=== PATIENT | male | born 1965 | race Caucasian/White ===

== ENCOUNTER → 2016-09-30 | Outpatient (CLI) | payer OTHER ==
[~2016-09-30] MED LIST: ATOR-22 PO; MULT-506 PO
--- NOTE | 2016-09-30 13:23 | DIAGNOSTIC IMAGING REPORT ---
RIGHT UPPER EXTREMITY ULTRASOUND CLINICAL HISTORY: Mass of right upper extremity. COMPARISON STUDY: No previous studies for comparison. FINDINGS: Sonography of the right upper extremity at site of palpable mass revealed a subtle 3.7 x 1.1 x 2.6 cm lobulated echogenic lesion within the subcutaneous tissues overlying the right deltoid muscle. This likely reflects the palpable abnormality. IMPRESSION: Suspected 3.7 x 1.1 x 2.6 cm echogenic subcutaneous mass overlying the right deltoid muscle. This likely reflects the palpable abnormality. The sonographic appearance is nonspecific although this could reflect a lipoma. Follow-up to ensure stability is recommended. If this should enlarge, repeat ultrasound is recommended. Electronically signed by: Rajendra Bangura M.D. 09/30/2016 1:21 PM
== END | disposition home or self-care (01) ==
LOC: C.ULTRBC 12:35
PROVIDERS: ATTEND Internal Medicine
DX: R22.31 Localized swelling, mass and lump, right upper limb (principal)

== ENCOUNTER → 2016-10-06 | Outpatient (CLI) | payer OTHER | END | disposition home or self-care (01) | LOC: C.PATH 08:11 | PROVIDERS: ATTEND Internal Medicine | DX: R22.9 Localized swelling, mass and lump, unspecified (principal); D17.21 Benign lipomatous neoplasm of skin and subcutaneous tissue of right arm ==

== ENCOUNTER → 2016-12-07 | Outpatient (CLI) | payer OTHER ==
[2016-12-07 13:02] LABS: ALT/SGPT 31 U/L (12-78); BLOOD UREA NITROGEN 17 mg/dl (7-18); BUN/CREATININE RATIO 14.3 (10-20); CALCIUM 8.9 mg/dl (8.5-10.1); CARBON DIOXIDE 27 mmol/L (21-32); CHLORIDE 105 mmol/L (98-107); CHOLESTEROL 204 mg/dl (0-200); GLUCOSE 82 mg/dl (70-99); POTASSIUM 3.9 mmol/L (3.5-5.1); SODIUM 141 mmol/L (136-145)
[2016-12-07 13:05] LABS: ALB/GLOB RATIO 1.2 (0.9-2); ALKALINE PHOSPHATASE 109 U/L (45-117); AST/SGOT 19 U/L (15-37); CHOLESTEROL/HDL RATIO 3.5; HDL CHOLESTEROL 58 mg/dl; LDL CHOLESTEROL CALCULATED 102 mg/dl; TRIGLYCERIDES 222 mg/dl (0-150); VERY LOW DENSITY LIPOPROT CALC 44 mg/dl
== END | disposition home or self-care (01) ==
LOC: C.LABBFT 09:49
PROVIDERS: ATTEND Internal Medicine
DX: Z00.00 Encounter for general adult medical examination without abnormal findings (principal)

== ENCOUNTER → 2017-04-02 | Outpatient (CLI) | payer OTHER ==
[2017-04-02 13:06] LABS: ALT/SGPT 37 U/L (12-78); AST/SGOT 19 U/L (15-37); BLOOD UREA NITROGEN 19 mg/dl (7-18); BUN/CREATININE RATIO 15.9 (10-20); CALCIUM 9.2 mg/dl (8.5-10.1); CARBON DIOXIDE 27 mmol/L (21-32); CHLORIDE 107 mmol/L (98-107); GLUCOSE 88 mg/dl (70-99); SODIUM 141 mmol/L (136-145)
[2017-04-02 13:08] LABS: ALB/GLOB RATIO 1.2 (0.9-2); ALKALINE PHOSPHATASE 122 U/L (45-117); AMYLASE 58 U/L (25-115)
== END | disposition home or self-care (01) ==
LOC: C.LABBFT 08:55
PROVIDERS: ATTEND Internal Medicine
DX: R10.9 Unspecified abdominal pain (principal)

== ENCOUNTER → 2017-04-05 | Outpatient (CLI) | payer OTHER ==
--- NOTE | 2017-04-05 08:37 | DIAGNOSTIC IMAGING REPORT ---
ABDOMINAL ULTRASOUND, RIGHT UPPER QUADRANT HISTORY: Abdominal pain. COMPARISON: CT of the abdomen and pelvis April 04, 2012 and abdominal ultrasound April 30, 2014. FINDINGS: Hepatic echogenicity is increased. No hepatic lesions are identified. The gallbladder is normal. There are no gallstones. There is no biliary ductal dilatation. The common bile duct measures 4 mm in caliber. The pancreatic body is normal. The head and tail are obscured. There is no right hydronephrosis. There is a 9 mm right renal cyst. There is mild right renal atrophy. IMPRESSION: 1. Fatty liver. 2. No gallstones or biliary ductal dilatation. Electronically signed by: Rajendra Bangura M.D. 04/05/2017 8:36 AM Dictated Date/Time: 04/05/2017 8:35 AM
== END | disposition home or self-care (01) ==
LOC: C.ULTR 07:31
PROVIDERS: ATTEND Internal Medicine
DX: R10.9 Unspecified abdominal pain (principal); K76.0 Fatty (change of) liver, not elsewhere classified

== ENCOUNTER → 2017-04-16 | Outpatient (CLI) | payer OTHER ==
[~2017-04-16] MED LIST changes: -ATOR-22 PO; -MULT-506 PO; +SINCALIDE INJ 1.8 MCG in SODIUM CHLORIDE 0.9% 100ML 100 ML IV SCH
--- NOTE | 2017-04-16 10:21 | DIAGNOSTIC IMAGING REPORT ---
HEPATOBILIARY EF IMAGING CLINICAL HISTORY: 51 years-old Male presenting with R10.9 Abdominal pain. TECHNIQUE: Dynamic imaging of the gallbladder was initiated 65 minutes after administration of 5.101 mCi of technetium 99m Choletec. Imaging was obtained every 5 minutes over a span of 40 minutes. 1.8 mcg of sincalide was injected 5 minutes prior to the start of imaging. The gallbladder ejection fraction was calculated. COMPARISON: Correlation made to ultrasound from 04/05/2017.. FINDINGS: The hepatobiliary scan shows normal filling of the gallbladder at the start of imaging. Expected activity within the bowel also noted. Gallbladder ejection fraction measured at 98% (normal greater than 50%). IMPRESSION: 1. Normal gallbladder ejection fraction. No evidence of chronic cholecystitis. Electronically signed by: Kleber Andrade M.D. 04/16/2017 10:19 AM Dictated Date/Time: 04/16/2017 10:18 AM
== END | disposition home or self-care (01) ==
LOC: C.NUCL 07:35
PROVIDERS: ATTEND Internal Medicine
DX: R10.9 Unspecified abdominal pain (principal)

== ENCOUNTER → 2017-04-29 | Outpatient (CLI) | payer OTHER ==
[~2017-04-29] MED LIST changes: +OPTIRAY 320 IV PRN; -SINCALIDE INJ 1.8 MCG in SODIUM CHLORIDE 0.9% 100ML 100 ML IV SCH
--- NOTE | 2017-04-29 12:21 | DIAGNOSTIC IMAGING REPORT ---
CHEST CT WITH CONTRAST CT DOSE: HISTORY: R59.1 Lymphadenopathy BILATERAL AXILLA.[id number] TECHNIQUE: Multiaxial CT images of the chest were performed following the intravenous administration of contrast. A dose lowering technique was utilized adhering to the principles of ALARA. COMPARISON: Chest CT 04/30/2014. FINDINGS: The central airways are patent. No pleural effusions. No pneumothorax. Stable punctate calcified granuloma within the left upper lobe on image 101. Stable 4 mm subpleural nodule within the lingula on image 210. Therefore, this is considered to be benign given the long-term stability. Punctate calcified granuloma within the right middle lobe. No new pulmonary nodules. No focal lung consolidations. Punctate calcified granuloma within the right upper lobe is also unchanged. No mediastinal, hilar, or axillary lymphadenopathy. Normal caliber thoracic aorta. The central pulmonary arteries are patent. Hepatic steatosis. Bilateral renal hypodense lesions. Partially visualized 1.5 cm exophytic posterior lesion within the left kidney. This does not clearly represent a simple cyst. IMPRESSION: 1. No lymphadenopathy within the chest. 2. Stable benign 4 mm nodule within the lingula. 3. Bilateral renal hypodense lesions which are only partially visualized on this study. Please refer to the dedicated abdomen and pelvis CT for further evaluation. Electronically signed by: Mario Abrams M.D. 04/29/2017 12:19 PM Dictated Date/Time: 04/29/2017 12:10 PM
--- NOTE | 2017-04-29 12:25 | DIAGNOSTIC IMAGING REPORT ---
CT SCAN OF THE ABDOMEN AND PELVIS WITH IV CONTRAST CLINICAL HISTORY: Lymphadenopathy. COMPARISON STUDY: Abdominal CT dated 04/04/2012. TECHNIQUE: Following the IV administration of 118 cc of Optiray 320, CT scan of the abdomen and pelvis is performed from the lung bases to the proximal femora. Images are reviewed in the axial, sagittal, and coronal planes. IV contrast was administered without complication. Automated dose control exposure was utilized. A dose lowering technique was utilized adhering to the principles of ALARA. CT DOSE: 900.73 mGy.cm FINDINGS: Lung bases: The heart is normal in size and without pericardial effusion. The lung bases are clear. There is a tiny hiatal hernia. Liver: The contrast-enhanced liver is enlarged measuring 19.2 cm in length. The liver demonstrates diffusely diminished attenuation consistent with hepatic steatosis. There is no intrahepatic biliary ductal dilatation. The hepatic veins and portal veins are patent. Gallbladder: Unremarkable. Spleen: Normal in size and attenuation. Pancreas: Unremarkable. Adrenal glands: Unremarkable. Kidneys: The contrast enhanced kidneys demonstrate mild cortical atrophy and are without hydronephrosis. The kidneys enhance symmetrically. Bilateral renal cysts measure up to 1.8 cm. Numerous subcentimeter cortical hypodensities also likely represent cysts but are too small for definitive characterization. There are 2 complex/hyperdense exophytic lesions arising from the posterior left kidney seen on image #143 measuring 1.9 cm and image #156 measure 1.6 cm. These been present dating back to 2011 but have increased in size from that study. Abdominal vasculature: The abdominal aorta is normal in course and caliber. Bowel: The small bowel and colon are normal in course and caliber. The appendix is well-visualized and normal. Peritoneum: There is no intraperitoneal free air or abdominal ascites. Lymphadenopathy: There is no abdominal, pelvic, or inguinal lymphadenopathy. Pelvic viscera: The bladder, prostate, and seminal vesicles are normal as imaged. Surgical clips are noted along the spermatic cord. Skeletal structures: No lytic or blastic lesions are seen. There are bilateral pars defects at L5. No anterolisthesis is seen at L5-S1. IMPRESSION: 1. There is no abdominal, pelvic, or inguinal lymphadenopathy as clinically queried. 2. The spleen is normal in size. 3. No acute infectious or inflammatory findings are seen in the abdomen or pelvis. 4. Hepatomegaly and hepatic steatosis. 5. There are 2 complex/hyperdense exophytic lesions arising posteriorly from the left kidney. These were present on the 2012 examination without increased in size from that time. These are pathologically indeterminant and likely represent complex/hemorrhagic cysts. Correlation with a contrast-enhanced MRI is recommended for further assessment and to exclude the possibility of underlying enhancing mass lesion. 6. Additional findings as above. Electronically signed by: Julio C Jain M.D. 04/29/2017 12:23 PM Dictated Date/Time: 04/29/2017 12:16 PM
== END | disposition home or self-care (01) ==
LOC: C.CTS 11:37
PROVIDERS: ATTEND Internal Medicine
DX: R10.9 Unspecified abdominal pain (principal); C85.90 Non-Hodgkin lymphoma, unspecified, unspecified site; R91.1 Solitary pulmonary nodule; K76.0 Fatty (change of) liver, not elsewhere classified; N28.9 Disorder of kidney and ureter, unspecified

== ENCOUNTER → 2017-05-26 | Outpatient (CLI) | payer OTHER ==
[~2017-05-26] MED LIST changes: +GADAVIST IV PRN; -OPTIRAY 320 IV PRN
--- NOTE | 2017-05-26 18:25 | DIAGNOSTIC IMAGING REPORT ---
ABDOMEN COMBO CLINICAL HISTORY: 52 years-old Male presenting with left renal lesion. TECHNIQUE: Multisequence, multiplanar MR imaging of the abdomen was performed before and after the administration of intravenous contrast. IV contrast: 9 mL of Gadavist. COMPARISON: Correlation made to CT from 04/29/2017. FINDINGS: Multiple well-defined T2 hyperintense renal lesions noted bilaterally, the largest at the left upper pole measuring 1.7 cm. The previously identified indeterminate lesion along the posterior aspect of the interpolar region of the left kidney is isointense on T2 to renal parenchyma and measures 1.3 cm. This lesion does not demonstrate convincing evidence of enhancement. Additionally, multiple nonenhancing right renal lesions are intrinsically T1 hyperintense, T2 hypointense, the largest measuring 1.3 cm at the medial aspect of the upper pole. These are most consistent with hemorrhagic or proteinaceous cysts. Suggestion of cortical thinning bilaterally, which may suggest medical renal disease. No pericardial or pleural effusion. Lung bases clear. Normal liver morphology without evidence of a liver lesion. No evidence of hepatic steatosis. No biliary ductal dilatation. No cholelithiasis. Suggestion of iron deposition within the spleen. Pancreas and adrenal glands normal. Bowel normal. No bowel obstruction. Aorta and IVC patent. No lymphadenopathy in the abdomen. Normal bone marrow signal intensity. Visualized portions of the pelvis normal. IMPRESSION: The previously noted indeterminate left renal lesion is most consistent with a hemorrhagic or proteinaceous cyst given the absence of demonstrable enhancement. Multiple additional hemorrhagic or proteinaceous cysts noted in the right kidney. No suspicious renal mass. Electronically signed by: Kleber Andrade M.D. 05/26/2017 6:23 PM Dictated Date/Time: 05/26/2017 6:15 PM
== END | disposition home or self-care (01) ==
LOC: C.MRI 15:56
PROVIDERS: ATTEND Physician Assistant Medical
DX: N28.9 Disorder of kidney and ureter, unspecified (principal)

== ENCOUNTER → 2017-08-11 | Day surgery (SDC) | payer OTHER ==
[2017-08-05 07:36] VITALS: Ht 185.4 cm; Wt 90.9 kg
[~2017-08-11] VITALS: Ht 185.4 cm; Wt 90.9 kg
[~2017-08-11] MED LIST changes: +ATOR-22 PO; -GADAVIST IV PRN; +LIDOCAINE HCL 2% 2 ML VIAL (20MG/ML) ONE; +MIDAZOLAM HCL 1 MG/ML 2ML VIAL ONE; +MULT-506 PO; +ONDANSETRON INJ 2 MG/ML 2 ML VIAL ONE; +PROPOFOL IV EMULSION 10 MG/ML 20 ML VIAL IV ONE; +SODIUM CHLORIDE 0.9% 500ML 500 ML IV ONE
[2017-08-11 14:23] VITALS: TEMP 36.4
--- NOTE | 2017-08-11 14:39 | Endo History and Physical ---
History & Physical Date of Service: Aug 11, 2017. Chief Complaint: Ab pain, N/V Referring Physician: Renny Bundy History of Present Illness 52 yo CM who presents for EGD secondary to abdominal pain, nausea and vomiting. Past Surgical History Hx Cardiac Surgery: No Hx Internal Defibrillator: No Hx Pacemaker: No Hx Abdominal Surgery: No Hx of Implantable Prosthesis: No Hx Post-Op Nausea and Vomiting: No Hx Cancer Surgery: Yes (LYMPHNODE EXCISION X2) Hx Thoracic Surgery: No Hx Orthopedic: No Hx Urinary Tract Surgery: No Family History None Social History Smoking Status: Never Smoker Hx Substance Use: No Hx Alcohol Use: Yes (1-2 DRINKS/WEEK) Allergies Coded Allergies: No Known Allergies (Unverified , 08/11/17) Current Medications Reported Home Medications Medications Dose Route/Sig Max Daily Dose Days Date Category Multivitamin (Multivitamins) Tab 1 Tab PO QAM 08/05/17 Reported Lipitor (Atorvastatin Calcium) 20 Mg Tab 20 Mg PO HS 08/05/17 Reported Vital Signs Weight (Kilograms): 90.91 Height (Feet): 6 Height (Inches): 1 Date Time Temp Pulse Resp B/P (MAP) Pulse Ox O2 Delivery O2 Flow Rate FiO2 08/11/17 14:23 36.4 74 20 147/86 (106) 98 Room Air Physical Exam General Appearance: WD/WN, no apparent distress Respiratory/Chest: Auscultation: breath sounds normal Cardiovascular: Heart Auscultation: RRR Abdomen: Bowel Sounds: normal Inspection & Palpation: soft, non-distended, no tenderness, guarding & rebound Assessment and Plan Assessment: 52 yo CM who presents for EGD secondary to abdominal pain, nausea and vomiting. Plan: Proceed with EGD
--- NOTE | 2017-08-11 14:59 | Discharge Instructions ---
Endoscopy Patient Instructions Date / Procedure(s) Performed Aug 11, 2017. EGD Allergy Information Coded Allergies: No Known Allergies (Unverified , 08/11/17) Discharge Date / Findings Aug 11, 2017. Gastric antrum biopsies Medication Instructions OK to resume all medications today as prescribed Reported Home Medications Medications Dose Route/Sig Max Daily Dose Days Date Category Multivitamin (Multivitamins) Tab 1 Tab PO QAM 08/05/17 Reported Lipitor (Atorvastatin Calcium) 20 Mg Tab 20 Mg PO HS 08/05/17 Reported Provider Instructions Activity Restrictions - No exercising or heavy lifting for 24 hours. - Do not drink alcohol the day of the procedure. - Do not drive a car or operate machinery until the day after the procedure. - Do not make any important decisions or sign important papers in 24 hours after the procedure. Following Day: - Return to full activity which may include returning to work/school. Diet Start your diet with liquids and light foods (jello, soup, juice, toast). Then eat your usual diet if not nauseated. Treatment For Common After Affects For mild abdominal pain, bloating, or excessive gas: - Rest - Eat lightly - Lie on right side Follow-Up Information Follow-up with Renny Bundy as scheduled Anesthesia Information What You Should Know You have had a procedure that required some medicine to reduce anxiety and discomfort. This treatment is called moderate sedation. After receiving the treatment, you may be sleepy, but you will be able to breathe on your own. The effects of the treatment may last for several hours. Follow these instructions along with Activity/Diet recommendations noted above: * Do NOT do anything where dizziness or clumsiness would be dangerous. * Rest quietly at home today, then you can be up and about tomorrow. * Have a responsible person stay with you the rest of today. * You may have had an I.V. today. If so, you may take the dressing off later today. Recommendations Call your doctor if: * Trouble breathing * Continuous vomiting for more than 24 hours * Temperature above 101 degrees * Severe abdominal pain or bloating * Pain not relieved by pain medicine ordered * There is increased drainage or redness from any incision * A large amount of rectal bleeding greater than 2-3 tablespoons. (If you had a polyp/s removed or have hemorrhoids, a small amount of blood - from the rectum is to be expected.) * You have any unanswered questions or concerns. IN THE EVENT OF A SERIOUS EMERGENCY, GO TO THE NEAREST EMERGENCY ROOM Your discharge instructions were prepared by provider Jamie Ellison. Patient Instructions Signature Page James Gomez Patient (or Guardian) Signature/Date: I have read and understand the instructions given to me by my caregivers. Caregiver/RN/Doctor Signature/Date: The above-named patient and/or guardian has received patient instructions on this date. + Original Patient Signature Page (only) stays with chart. Please make copy for patient.
--- NOTE | 2017-08-11 15:02 | GI REPORT ---
Procedure Date: 08/11/2017 2:45 PM Procedure: Upper GI endoscopy Indications: Epigastric abdominal pain, Nausea with vomiting Medicines: Monitored Anesthesia Care Complications: No immediate complications. Estimated Blood Loss: Estimated blood loss: none. Procedure: Pre-Anesthesia Assessment: - Prior to the procedure, a History and Physical was performed, and patient medications and allergies were reviewed. The patient's tolerance of previous anesthesia was also reviewed. The risks and benefits of the procedure and the sedation options and risks were discussed with the patient. All questions were answered, and informed consent was obtained. Prior Anticoagulants: The patient has taken no previous anticoagulant or antiplatelet agents. ASA Grade Assessment: II - A patient with mild systemic disease. After reviewing the risks and benefits, the patient was deemed in satisfactory condition to undergo the procedure. After obtaining informed consent, the endoscope was passed under direct vision. Throughout the procedure, the patient's blood pressure, pulse, and oxygen saturations were monitored continuously. The scope was introduced through the mouth, and advanced to the second part of duodenum. The upper GI endoscopy was accomplished without difficulty. The patient tolerated the procedure well. Findings: The esophagus was normal. The entire examined stomach was normal. Biopsies were taken with a cold forceps for histology. The examined duodenum was normal. Impression: - Normal esophagus. - Normal stomach. Biopsied. - Normal examined duodenum. Recommendation: - Resume previous diet. - Continue present medications. - Await pathology results. - Return to primary care physician as previously scheduled. Jamie Ellison, 08/11/2017 3:02:00 PM This report has been signed electronically. Note Initiated On: 08/11/2017 2:45 PM I attest to the content of the Intraoperative Record and orders documented therein, exceptions below
--- NOTE | 2017-08-11 15:22 | Anesthesiology Progress Note ---
Anesthesia Post Op Note Date & Time Aug 11, 2017 at 15:22 Vital Signs Pain Intensity: 0 Vital Signs Past 12 Hours Date Time Temp Pulse Resp B/P (MAP) Pulse Ox O2 Delivery O2 Flow Rate FiO2 08/11/17 15:17 77 20 125/81 (96) 97 Room Air 08/11/17 15:01 86 20 117/80 (92) 94 Room Air 08/11/17 14:23 36.4 74 20 147/86 (106) 98 Room Air Notes Mental Status: alert / awake / arousable, participated in evaluation Pt Amnestic to Procedure: Yes Nausea / Vomiting: adequately controlled Pain: adequately controlled Airway Patency, RR, SpO2: stable & adequate BP & HR: stable & adequate Hydration State: stable & adequate Anesthetic Complications: no major complications apparent
[2017-08-11 15:31] VITALS: BP 118/86; PULSE 71; O2SAT 98
== END | disposition home or self-care (01) ==
LOC: C.GI 13:58
PROVIDERS: ATTEND Internal Medicine
DX: R10.13 Epigastric pain (principal); R11.2 Nausea with vomiting, unspecified; Z98.890 Other specified postprocedural states; Z79.899 Other long term (current) drug therapy; Z90.89 Acquired absence of other organs

== ENCOUNTER → 2017-08-25 | Outpatient (CLI) | payer OTHER ==
[~2017-08-25] MED LIST changes: -LIDOCAINE HCL 2% 2 ML VIAL (20MG/ML) ONE; -MIDAZOLAM HCL 1 MG/ML 2ML VIAL ONE; -ONDANSETRON INJ 2 MG/ML 2 ML VIAL ONE; -PROPOFOL IV EMULSION 10 MG/ML 20 ML VIAL IV ONE; -SODIUM CHLORIDE 0.9% 500ML 500 ML IV ONE
[2017-08-25 17:49] LABS: BASO % 0.6 %; BASO ABS # 0.04 K/uL (0-0.2); COMPLETE YES; HEMATOCRIT 44.9 % (42-52); IG% 0.4 %; LYMPH % 32.4 %; LYMPH ABS # 2.23 K/uL (1.2-3.4); MEAN CELL VOLUME 94.9 fL (80-100); MEAN CORPUSCULAR HEMOGLOBIN 32.3 pg (25-34); MEAN CORPUSCULAR HGB CONC 34.1 g/dl (32-36); MEAN PLATELET VOLUME 10.8 fL (7.4-10.4); MONO % 8.1 %; NEUT % 57.5 %; PLATELET COUNT 248 K/uL (130-400); RED BLOOD COUNT 4.73 M/uL (4.7-6.1); WHITE BLOOD COUNT 6.88 K/uL (4.8-10.8)
[2017-08-25 17:50] LABS: AMYLASE 61 U/L (25-115); BLOOD UREA NITROGEN 14 mg/dl (7-18); BUN/CREATININE RATIO 11.9 (10-20); CALCIUM 9.1 mg/dl (8.5-10.1); CARBON DIOXIDE 28 mmol/L (21-32); CHLORIDE 103 mmol/L (98-107); CREATININE 1.17 mg/dl (0.60-1.40); GLUCOSE 83 mg/dl (70-99); POTASSIUM 4.1 mmol/L (3.5-5.1); SODIUM 137 mmol/L (136-145)
[2017-08-25 17:55] LABS: ALB/GLOB RATIO 1.2 (0.9-2); ALKALINE PHOSPHATASE 137 U/L (45-117); ALT/SGPT 68 U/L (12-78); AST/SGOT 33 U/L (15-37)
[2017-08-29 16:24] LABS: IGA SERUM 124 mg/dL (81-463); TIS TRANS IGA 1 U/mL (<4)
== END | disposition home or self-care (01) ==
LOC: C.LABBFT 12:22
PROVIDERS: ATTEND Registered Nurse
DX: N40.0 Benign prostatic hyperplasia without lower urinary tract symptoms (principal); R10.13 Epigastric pain; R11.2 Nausea with vomiting, unspecified

== ENCOUNTER → 2017-09-06 | Outpatient (CLI) | payer OTHER ==
--- NOTE | 2017-09-06 09:14 | DIAGNOSTIC IMAGING REPORT ---
BILIARY ABDOMEN LIMITED CLINICAL HISTORY: 52 years-old Male presenting with Nausea and vomiting. TECHNIQUE: Real-time grayscale and limited color Doppler ultrasound imaging of the abdomen limited to the right upper quadrant was performed. COMPARISON: MR from 05/26/[address] from 04/29/2017. FINDINGS: Pancreas: Visualized portions of the pancreatic head and body normal. Liver: Moderately hyperechogenic parenchyma with partial obscuration of the right hemidiaphragm, likely indicating moderate steatosis. The liver measures 19.7 cm in maximal sagittal dimension. No sonographic evidence of hepatic mass. Main portal vein patent with normal directional flow. Biliary: No intrahepatic biliary ductal dilatation. Common bile duct measures up to 5 mm in diameter. Gallbladder: No evidence of gallstones, gallbladder wall thickening, gallbladder distention, or pericholecystic fluid or inflammatory change. Right kidney: Multiple subcentimeter renal cysts noted. No hydronephrosis. Ascites: None. IMPRESSION: No cholelithiasis or biliary ductal dilatation. No sonographic evidence of acute right upper quadrant pathology. Electronically signed by: Kleber Andrade M.D. 09/06/2017 9:12 AM Dictated Date/Time: 09/06/2017 9:09 AM
== END | disposition home or self-care (01) ==
LOC: C.ULTRBC 08:35
PROVIDERS: ATTEND Registered Nurse
DX: R11.2 Nausea with vomiting, unspecified (principal)

== ENCOUNTER → 2017-11-12 | Outpatient (CLI) | payer OTHER ==
[2017-11-12 12:49] LABS: BASO % 0.5 %; BASO ABS # 0.03 K/uL (0-0.2); EOS % 1.1 %; EOS ABS # 0.06 K/uL (0-0.5); HEMATOCRIT 42.2 % (42-52); HEMOGLOBIN 14.6 g/dL (14.0-18.0); IG# 0.01 K/uL (0.00-0.02); LYMPH % 37.2 %; LYMPH ABS # 2.08 K/uL (1.2-3.4); MEAN CELL VOLUME 93.2 fL (80-100); MEAN CORPUSCULAR HEMOGLOBIN 32.2 pg (25-34); MEAN CORPUSCULAR HGB CONC 34.6 g/dl (32-36); MEAN PLATELET VOLUME 10.8 fL (7.4-10.4); MONO % 7.7 %; MONO ABS # 0.43 K/uL (0.11-0.59); NEUT % 53.3 %; NEUT ABS # 2.98 K/uL (1.4-6.5); PLATELET COUNT 231 K/uL (130-400); RED CELL DISTRIBUTION WIDTH SD 44.1 fL (36.4-46.3); WHITE BLOOD COUNT 5.59 K/uL (4.8-10.8)
[2017-11-12 13:11] LABS: ALBUMIN 3.7 gm/dl (3.4-5.0); ALT/SGPT 32 U/L (12-78); AST/SGOT 19 U/L (15-37); BLOOD UREA NITROGEN 18 mg/dl (7-18); CALCIUM 8.8 mg/dl (8.5-10.1); CARBON DIOXIDE 26 mmol/L (21-32); CHOLESTEROL 186 mg/dl (0-200); CREATININE 1.21 mg/dl (0.60-1.40); GLUCOSE 97 mg/dl (70-99); POTASSIUM 4.1 mmol/L (3.5-5.1); SODIUM 139 mmol/L (136-145)
[2017-11-12 13:21] LABS: ALKALINE PHOSPHATASE 110 U/L (45-117); LDL CHOLESTEROL CALCULATED 107 mg/dl; TOTAL PROTEIN 6.6 gm/dl (6.4-8.2)
== END | disposition home or self-care (01) ==
LOC: C.LABBFT 07:42
PROVIDERS: ATTEND Internal Medicine
DX: E78.00 Pure hypercholesterolemia, unspecified (principal); F41.9 Anxiety disorder, unspecified

== ENCOUNTER → 2018-04-25 | Outpatient (CLI) | payer OTHER ==
[~2018-04-25] MED LIST changes: +CIPR-255 PO; +METR-163 PO; +MISCCAP80 PO
--- NOTE | 2018-04-25 09:23 | DIAGNOSTIC IMAGING REPORT ---
GI W/AIR SMALL BOWEL ROUTINE CLINICAL HISTORY: 52 years-old Male with K56.600 Partial small bowel [id number] of the. Follow-up study in a patient with recent partial small bowel obstruction TECHNIQUE: A standard air contrast upper GI series was performed following administration of barium and effervescent crystals. Small bowel follow-through was also obtained with multiple serial images. Spot images of all 4 quadrants were also obtained. Multiple spot fluoroscopic images were obtained and provided for review. COMPARISON STUDY: CT abdomen and pelvis 04/17/2018 FLUOROSCOPY TIME: 2.7 minutes. Total of 34 images were submitted. FINDINGS: Emergency Response Officer radiograph of the abdomen demonstrates multiple nondistended loops of air-filled small and large bowel scattered throughout the abdomen. There are no signs of bowel obstruction or evidence of gross pneumoperitoneum. The patient swallowed barium without difficulty. No aspiration was definitively visualized. The esophagus distended normally with barium and effervescent crystals. No strictures, mucosal ulcerations, or intraluminal mass lesions were identified involving the esophagus. There was no significant gastroesophageal reflux. Barium was seen to flow freely through the gastroesophageal junction. No active reflux was demonstrated with Valsalva maneuver. Evaluation of the stomach demonstrates no gastric mucosal irregularity or filling defect. The duodenal bulb and sweep appear unremarkable. Transit to the large bowel occurred at approximately 40 minutes. Subsequently, spot fluoroscopic images of the abdomen were obtained and demonstrate freely movable bowel in all four abdominal quadrants. The terminal ileum is not well seen secondary to overlying opacified loops of small bowel. IMPRESSION: Unremarkable upper GI and small bowel follow-through study without evidence of small bowel obstruction. Electronically signed by: Jaswant Rodrigues M.D. 04/25/2018 9:22 AM Dictated Date/Time: 04/25/2018 9:17 AM
== END | disposition home or self-care (01) ==
LOC: C.RAD 08:02
PROVIDERS: ATTEND Registered Nurse
DX: R93.5 Abnormal findings on diagnostic imaging of other abdominal regions, including retroperitoneum (principal); K56.600 Partial intestinal obstruction, unspecified as to cause

== ENCOUNTER → 2018-05-10 | Day surgery (SDC) | payer OTHER ==
[2018-05-06 15:11] VITALS: Ht 182.9 cm; Wt 88.6 kg
[~2018-05-10] VITALS: Ht 182.9 cm; Wt 88.6 kg
[~2018-05-10] MED LIST changes: +ATROPINE SULFATE 0.1 MG/ML 5ML SYR IV PRN; -CIPR-255 PO; +EpHEDrine SULFATE INJ 50 MG/ML AMP IV PRN; +LIDOCAINE HCL 2% 2 ML VIAL (20MG/ML) ONE; -METR-163 PO; +MIDAZOLAM HCL 1 MG/ML 2ML VIAL ONE; +PROPOFOL IV EMULSION 10 MG/ML 20 ML VIAL ONE; +SODIUM CHLORIDE 0.9% 500ML 500 ML IV ONE
--- NOTE | 2018-05-10 11:31 | Endo History and Physical ---
History & Physical Date of Service: May 10, 2018. Chief Complaint: Abnormal CT scan Referring Physician: Renny Bundy History of Present Illness 52 yo CM who presents for Colonoscopy secondary to abnormal CT scan. Past Surgical History Hx Cardiac Surgery: No Hx Internal Defibrillator: No Hx Pacemaker: No Hx Abdominal Surgery: No Hx Post-Op Nausea and Vomiting: No Hx Cancer Surgery: Yes (LYMPHNODE REMOVAL) Hx Thoracic Surgery: No Hx Orthopedic: No Hx Urinary Tract Surgery: No Family History None Social History Smoking Status: Never Smoker Hx Substance Use: No Hx Alcohol Use: Yes (OCCASIONALLY) Allergies Coded Allergies: No Known Allergies (Verified , 05/10/18) Current Medications Reported Home Medications Medications Dose Route/Sig Max Daily Dose Days Date Category Probiotic (Probiotic Product) 1 Cap Cap 1 Cap PO DAILY 04/16/18 Reported Multivitamin (Multivitamins) Tab 1 Tab PO QAM 08/05/17 Reported Lipitor (Atorvastatin Calcium) 20 Mg Tab 20 Mg PO HS 08/05/17 Reported Vital Signs Weight (Kilograms): 88.64 Height (Feet): 6 Height (Inches): 0 Date Time Temp Pulse Resp B/P (MAP) Pulse Ox O2 Delivery O2 Flow Rate FiO2 05/10/18 11:21 36.4 68 18 122/88 (99) 100 Room Air Physical Exam General Appearance: WD/WN, no apparent distress Respiratory/Chest: Auscultation: breath sounds normal Cardiovascular: Heart Auscultation: RRR Abdomen: Bowel Sounds: normal Inspection & Palpation: soft, non-distended, no tenderness, guarding & rebound Assessment and Plan Assessment: 52 yo CM who presents for Colonoscopy secondary to abnormal CT scan. Plan: Proceed with colonoscopy.
--- NOTE | 2018-05-10 12:49 | Discharge Instructions ---
Endoscopy Patient Instructions Date / Procedure(s) Performed May 10, 2018. Colonoscopy Allergy Information Coded Allergies: No Known Allergies (Verified , 05/10/18) Discharge Date / Findings May 10, 2018. Stricture of IC valve Internal hemorrhoids Medication Instructions OK to resume all medications today as prescribed Reported Home Medications Medications Dose Route/Sig Max Daily Dose Days Date Category Probiotic (Probiotic Product) 1 Cap Cap 1 Cap PO DAILY 04/16/18 Reported Multivitamin (Multivitamins) Tab 1 Tab PO QAM 08/05/17 Reported Lipitor (Atorvastatin Calcium) 20 Mg Tab 20 Mg PO HS 08/05/17 Reported Provider Instructions Activity Restrictions - No exercising or heavy lifting for 24 hours. - Do not drink alcohol the day of the procedure. - Do not drive a car or operate machinery until the day after the procedure. - Do not make any important decisions or sign important papers in 24 hours after the procedure. Following Day: - Return to full activity which may include returning to work/school. Diet Start your diet with liquids and light foods (jello, soup, juice, toast). Then eat your usual diet if not nauseated. Treatment For Common After Affects For mild abdominal pain, bloating, or excessive gas: - Rest - Eat lightly - Lie on right side Follow-Up Information Follow-up with Renny Bundy as scheduled Anesthesia Information What You Should Know You have had a procedure that required some medicine to reduce anxiety and discomfort. This treatment is called moderate sedation. After receiving the treatment, you may be sleepy, but you will be able to breathe on your own. The effects of the treatment may last for several hours. Follow these instructions along with Activity/Diet recommendations noted above: * Do NOT do anything where dizziness or clumsiness would be dangerous. * Rest quietly at home today, then you can be up and about tomorrow. * Have a responsible person stay with you the rest of today. * You may have had an I.V. today. If so, you may take the dressing off later today. Recommendations Call your doctor if: * Trouble breathing * Continuous vomiting for more than 24 hours * Temperature above 101 degrees * Severe abdominal pain or bloating * Pain not relieved by pain medicine ordered * There is increased drainage or redness from any incision * A large amount of rectal bleeding greater than 2-3 tablespoons. (If you had a polyp/s removed or have hemorrhoids, a small amount of blood - from the rectum is to be expected.) * You have any unanswered questions or concerns. IN THE EVENT OF A SERIOUS EMERGENCY, GO TO THE NEAREST EMERGENCY ROOM Your discharge instructions were prepared by provider Jamie Ellison. Patient Instructions Signature Page James Gomez Patient (or Guardian) Signature/Date: I have read and understand the instructions given to me by my caregivers. Caregiver/RN/Doctor Signature/Date: The above-named patient and/or guardian has received patient instructions on this date. + Original Patient Signature Page (only) stays with chart. Please make copy for patient.
[2018-05-10 12:50] VITALS: TEMP 36.4
--- NOTE | 2018-05-10 12:58 | Anesthesiology Progress Note ---
Anesthesia Post Op Note Date & Time May 10, 2018 at 12:58 Vital Signs Vital Signs Past 12 Hours Date Time Temp Pulse Resp B/P (MAP) Pulse Ox O2 Delivery O2 Flow Rate FiO2 05/10/18 12:50 36.4 72 18 103/60 (74) 97 Room Air 05/10/18 11:21 36.4 68 18 122/88 (99) 100 Room Air Notes Mental Status: alert / awake / arousable, participated in evaluation Pt Amnestic to Procedure: Yes Nausea / Vomiting: adequately controlled Pain: adequately controlled Airway Patency, RR, SpO2: stable & adequate BP & HR: stable & adequate Hydration State: stable & adequate Anesthetic Complications: no major complications apparent
--- NOTE | 2018-05-10 13:00 | GI REPORT ---
Patient Name: James Gomez Procedure Date: 05/10/2018 12:12 PM Date of : 1965 Admit Type: Outpatient Age: 52 Gender: Male Attending MD: Jamie Ellison DO Procedure: Colonoscopy Providers: Jamie Ellison DO Referring MD: Renny Bundy Indications: Abnormal CT of the GI tract Medicines: Monitored Anesthesia Care Complications: No immediate complications. Estimated Blood Loss: Estimated blood loss: none. Procedure: Pre-Anesthesia Assessment: - Prior to the procedure, a History and Physical was performed, and patient medications and allergies were reviewed. The patient's tolerance of previous anesthesia was also reviewed. The risks and benefits of the procedure and the sedation options and risks were discussed with the patient. All questions were answered, and informed consent was obtained. Prior Anticoagulants: The patient has taken no previous anticoagulant or antiplatelet agents. ASA Grade Assessment: II - A patient with mild systemic disease. After reviewing the risks and benefits, the patient was deemed in satisfactory condition to undergo the procedure. After I obtained informed consent, the scope was passed under direct vision. Throughout the procedure, the patient's blood pressure, pulse, and oxygen saturations were monitored continuously. The scope was introduced through the anus and advanced to the ileocecal valve. The colonoscopy was performed without difficulty. The patient tolerated the procedure well. The quality of the bowel preparation was good. The terminal ileum, ileocecal valve, appendiceal orifice, and rectum were photographed. Findings: The perianal and digital rectal examinations were normal. The ileocecal valve contained a benign-appearing, intrinsic severe stenosis measuring 1 cm (in length) x 1 cm (inner diameter) that was non-traversed. Non-bleeding internal hemorrhoids were found during retroflexion. The hemorrhoids were small. Impression: - Stricture at the ileocecal valve. - Non-bleeding internal hemorrhoids. - No specimens collected. Recommendation: - Resume previous diet. - Use prednisone 40 mg PO once a day for 1 week, then decrease by 5 mg by mouth weekly for 8 week taper. - Repeat colonoscopy in 3 months to evaluate the response to therapy. - Return to GI office in 2 weeks. Jamie Ellison DO 05/10/2018 12:59:42 PM This report has been signed electronically. Note Initiated On: 05/10/2018 12:12 PM Number of Addenda: 0 I attest to the content of the Intraoperative Record and orders documented therein, exceptions below {[id number]}
[2018-05-10 13:18] VITALS: BP 127/88; PULSE 56; O2SAT 100
== END | disposition home or self-care (01) ==
LOC: C.GI 10:33
PROVIDERS: ATTEND Internal Medicine
DX: R93.3 Abnormal findings on diagnostic imaging of other parts of digestive tract (principal); K56.699 Other intestinal obstruction unspecified as to partial versus complete obstruction; K64.8 Other hemorrhoids; Z79.899 Other long term (current) drug therapy

== ENCOUNTER 2019-03-17 09:52 | Inpatient (IN) ==
[2019-03-17] MEDS ORDERED: SODIUM CHLORIDE 0.9% 1000ML 1,000 ML IV ONE (10:21)
[2019-03-17] MEDS ORDERED: ONDANSETRON INJ 2 MG/ML 2 ML VIAL IV STA (10:21)
[2019-03-17] MEDS ORDERED: MoRPHine SULFATE 10 MG/ML CARP/VIAL IV STA (10:22)
[2019-03-17 10:24] LABS: Basophils # (auto) 0.03 K/uL (0-0.2); Basophils % (auto) 0.3 %; Eosinophils # (auto) 0.02 K/uL (0-0.5); Eosinophils % (auto) 0.2 %; Hematocrit (blood only) 42.7 % (42-52); Hemoglobin 15.2 g/dL (14.0-18.0); Immature Granulocytes # (auto) 0.02 K/uL (0.00-0.02); Immature Granulocytes % (auto) 0.2 %; Lymphocytes % (auto) 14.5 %; Mean Corpuscular Hgb Conc 35.6 g/dL (32-36); Mean Platelet Volume 10.4 fL (7.4-10.4); Monocytes # (auto) 0.38 K/uL (0.11-0.59); Monocytes % (auto) 3.9 %; Neutrophils # (auto) 7.78 K/uL (1.4-6.5); Neutrophils % (auto) 80.9 %; Platelet Count 219 K/uL (130-400); RDW Coefficient of Variation 12.8 % (11.5-14.5); RDW Standard Deviation 41.9 fL (36.4-46.3); White Blood Count 9.63 K/uL (4.8-10.8)
[2019-03-17 10:40] LABS: Albumin Level 3.8 gm/dl (3.4-5.0); BUN Creatinine Ratio 14.4 (10-20); Calcium 9.2 mg/dl (8.5-10.1); Creatinine Clr Calc Pharmacy 83.2 ml/min; Est GFR (African American) 82.9; Est GFR (Non-African American) 71.5; Potassium 4.3 mmol/L (3.5-5.1)
[2019-03-17 10:43] LABS: Albumin Globulin Ratio 1.2 (0.9-2); Bilirubin,Total 0.9 mg/dl (0.2-1); Globulin 3.2 gm/dl (2.5-4.0)
[2019-03-17] MEDS ORDERED: IOVERSOL 100ml IV PRN (11:47)
[2019-03-17 12:17] LABS: Appearance Urine Clear (Clear); Bilirubin Urine Negative (Negative); Blood Urine Negative (Negative); Color Urine Yellow; Glucose Urine UA Negative (Negative); Ketones Urine Negative (Negative); Leukocyte Esterase Urine Negative (Negative); Nitrite Urine Negative (Negative); Protein Urine Negative (Negative); Specific Gravity Urine 1.029 (1.000-1.030); Urobilinogen Urine Negative (Negative)
--- NOTE | 2019-03-17 13:05 | CT Scan Report ---
CT abd pelvis IV con only CLINICAL HISTORY: 53 years-old Male presenting with abd pain ? sbo. TECHNIQUE: Multidetector CT of the abdomen and pelvis was performed after the administration of intra venous contrast. IV contrast: 94 mL of Optiray 320. One or more dose lowering techniques were used co nsistent with the principles of ALARA (as low as reasonably achievable), including automatic exposure control, mA or kV adjustment to individual patient size, and/or use of iterative reconstruction. COMPARISON: 04/17/2018. CT DOSE (mGy.cm): The estimated cumulative dose is 574.48 mGy.cm. FINDINGS: Front Line Supervisor topogram: Unremarkable. Lung bases: Normal heart size. No pericardial or pleural effusion. Minimal dependent changes likely a telectasis. Liver: Normal morphology. No liver lesion. Patent hepatic vasculature. Biliary: No intrahepatic or extrahepatic biliary ductal dilatation. Normal gallbladder. Pancreas: Normal. Spleen: Normal. Adrenal glands: Normal. Kidneys and ureters: Multiple well-defined hypodense lesions in both kidneys as on prior exam, likely simple cyst. Adjacent indeterminate exophytic lesions arising from the posterior aspect of the inter polar region of the left kidney are unchanged from prior (series 3 images 151 and 167). No nephrolith iasis or hydronephrosis. Ureters nondistended. Bladder: Normal. Pelvic organs: Prostate and seminal vesicles normal. Bowel: Normal appendix. Dilated small bowel in the distal ileum filled with feces with a diameter of over 4 cm. Trace perienteric fluid and edema. Focal transition point in the right lower quadrant (ser ies 3 image 363). The obstructing loop appears mildly thick-walled. No gross evidence of a mass. Smoo th tapering of upstream small bowel without convincing evidence of a closed loop obstruction. Peritoneal cavity: Trace perienteric free fluid. No extraluminal or free intraperitoneal gas. Lymph nodes: No enlarged lymph nodes in the abdomen or pelvis. Vasculature: Aorta and IVC patent and normal in caliber. Abdominal wall: Small fat-containing umbilical hernia. Small fat-containing right inguinal hernia. Musculoskeletal: Degenerative changes of the spine. IMPRESSION: 1. High-grade partial or complete small bowel obstruction of the distal ileum at a focal transition point in the right lower quadrant. This may relate to an adhesion versus an inflammatory stricture gi stephen suggestion of downstream small bowel wall thickening. 2. Indeterminate left renal lesions unchanged from prior. Consider ultrasound for assessment for pos sible solid lesion. Electronically signed by: Kleber Andrade M.D. 03/17/2019 1:04 PM
[2019-03-17] MEDS ORDERED: MoRPHine SULFATE 4 MG/ML 1 ML CARP\\VIAL IV STA (13:10)
--- NOTE | 2019-03-17 14:10 | History & Physical Report ---
Date of Service March 17, 2019 Assessment & Plan (1) Small bowel obstruction: N.p.o. IV fluids. Treat nausea as needed. Consult general surgery and gastroenterology Present on Admission?: Yes (2) Hyperlipidemia: Statin therapy is on hold (3) History of non-Hodgkin's lymphoma: Treated and resolved in 2005 (4) DVT prophylaxis: Lovenox subcu History of Present Illness Chief Complaint: Abdominal discomfort, nausea and vomiting Primary Care Provider: Renny Bundy MD 53-year-old male with his second episode of small bowel obstruction. His first episode occurred last summer. He has no definite evidence of inflammatory bowel disease and no previous abdominal surgeries. CT scan reveals evidence of small bowel obstruction in the region of the distal ileum. Colonoscopy done last fall however was normal. He did have some nausea and vomiting associated with the abdominal pain this morning but he refuses NG tube placement and currently is not vomiting. Abdomen is soft. He will be admitted for conservative treatment with consultations to general surgery and gastroenterology Allergies Allergy/AdvReac Type Severity Reaction Status Date / Time No Known Allergies Allergy Verified 03/17/19 10:53 Home Medications Home Medications Medication Instructions Recorded Confirmed Type Probiotic 1 cap PO QAM 08/03/18 03/17/19 History atorvastatin 20 mg PO HS 08/03/18 03/17/19 History multivitamin 1 tab PO QAM 08/03/18 03/17/19 History Past Med/Surg History Medical History Stenosis of ileocecal valve Small bowel obstruction Cancer LYMPHOMA (2005 DX) RADIATION Hyperlipidemia Surgical History History of biopsy NECK LYMPH NODES RT/LEFT (LYMPHOMA) History of colonoscopy History of esophagogastroduodenoscopy (EGD) History of tonsillectomy History of tooth extraction S/P LASIK surgery Family History Father Family history of diabetes mellitus Social History Preferred Language: Somali Communication Ability: Effective Beliefs That Will Affect Care: None Current Living Situation: Family Feels Safe at Home: Yes Smoking Status: Never smoker Second Hand Exposure: Yes (RARELY) Hx Alcohol Use: No Hx Substance Use: No Review of Systems Review of Systems: Constitutional-no fever or chills ENT-no blurred vision, no double vision, no epistaxis, no sore throat Respiratory-no cough, no wheezing, no shortness of breath Cardiac-no palpitations, no chest pain, no syncope GI-diffuse mild abdominal pain. Some nausea and vomiting. No focal tenderness. No bloating -no urinary retention, no urinary incontinence, no dysuria, no hematuria Musculoskeletal-no joint pain, no muscle tenderness Skin-no bruising, no rashes, no pruritus Neuro-no isolated weakness, no paresthesia, no weakness Psych-no depression, no anxiety Physical Exam Physical Exam: General-alert and oriented x3, no fevers, no chills HEENT-head atraumatic and normocephalic, TMs intact bilaterally, pupils equal and reactive to light, extraocular muscles intact Neck-no lymphadenopathy or thyromegaly, trachea midline Chest-clear to auscultation percussion. No rales wheezing or rhonchi Cardiac-regular rate and rhythm, normal S1 and S2, no murmurs Abdomen-abdomen soft with active bowel sounds. Nondistended. Mild tenderness in the right lower quadrant area. No rebound or guarding. No masses Extremities-no cyanosis, clubbing, or edema Neuro-cranial nerves II through XII intact, motor and sensory function within normal limits, strength symmetrical 5/5, no focal deficits Psych-normal affect, normal mood Results & Data Vital Signs (Past 12 Hours) Vital Signs Temp Pulse Pulse Resp BP BP Pulse Ox 03/17/19 12:25 57 L 18 155/87 H 98 03/17/19 10:31 55 L 18 153/91 H 97 03/17/19 09:57 36.5 C 93 H 20 153/99 H 98 Laboratory Results 03/17/19 10:15 03/17/19 10:15 PG Care Time/CCT Total # of Minutes Spent Total Time Spent with Patient: Total time spent is greater than 50% in coordination of care (as documented) at patient's floor/unit and/or counseling patient:
[2019-03-17] MEDS ORDERED: ONDANSETRON INJ 2 MG/ML 2 ML VIAL IV PRN (15:06)
--- NOTE | 2019-03-17 15:55 | Surgery Consultation ---
Date of Consultation March 17, 2019 Assessment & Plan (1) Small bowel obstruction: Transition point in RLQ, similar to previous. Exam is benign, continue bowel rest, IVF. Recommend NG if he has persistent N/V. Will discuss with GI. History of Present Illness Attending Physician: Luis Alegria MD History of Present Illness 53 y/o male had bloating last night after dinner, vomited this morning and came to ED. He is being followed for TI thickening/stricture initially thought to be IBD. He was admitted March 2018 for similar symptoms, had colonoscopy and treated with steroids for presumed IBD. Follow-up colonoscopy in July was negative. He was referred recently for capsule endoscopy. Had loose BM yesterday, some flatus this morning but nothing since admission. Declined to have NGT. Allergies Allergy/AdvReac Type Severity Reaction Status Date / Time No Known Allergies Allergy Verified 03/17/19 10:53 Home Medications Home Medications Medication Instructions Recorded Confirmed Type Probiotic 1 cap PO QAM 08/03/18 03/17/19 History atorvastatin 20 mg PO HS 08/03/18 03/17/19 History multivitamin 1 tab PO QAM 08/03/18 03/17/19 History Patient History Medical History History of non-Hodgkin's lymphoma (Chronic) Hyperlipidemia (Chronic) Stenosis of ileocecal valve Small bowel obstruction (Acute) Cancer LYMPHOMA (2006 DX) RADIATION Hyperlipidemia Surgical History History of biopsy NECK LYMPH NODES RT/LEFT (LYMPHOMA) History of colonoscopy History of esophagogastroduodenoscopy (EGD) History of tonsillectomy History of tooth extraction S/P LASIK surgery Family History Father Family history of diabetes mellitus Social History Preferred Language: Cymraes Communication Ability: Effective Submarine Worker Required: No Beliefs That Will Affect Care: None Current Living Situation: Spouse and Family Other Information That Helps Us Care for You: No Feels Safe at Home: Yes Safety Concerns: Feels Safe At This Time Smoking Status: Never smoker Do You Dip or Chew Tobacco: No Second Hand Exposure: Yes (RARELY) Hx Alcohol Use: No Hx Substance Use: No Review of Systems Constitutional: no fever and no chills Gastrointestinal: + abdominal pain, + belching, + bloating, + vomiting and + diarrhea/loose stools Physical Exam Constitutional: WD/WN, vitals as above Respiratory: normal respiratory effort Cardiovascular: Rate/Rhythm: regular rate Gastrointestinal (Abdomen): Inspection/Auscultation: + abdomen distended Percussion/Palpation: + abdomen tender (minimal) and abdomen soft; no guarding Results & Data Vital Signs (Past 12 Hours) Vital Signs Temp Pulse Pulse Resp BP BP Pulse Ox 03/17/19 14:53 36.7 C 49 L 20 162/97 H 98 03/17/19 14:32 55 L 18 136/85 99 03/17/19 14:30 64 17 98 03/17/19 14:20 69 19 98 03/17/19 14:10 58 L 19 98 03/17/19 14:01 57 L 17 141/100 H 99 03/17/19 13:50 63 15 98 03/17/19 13:40 58 L 17 97 03/17/19 13:31 68 16 161/91 H 98 03/17/19 13:20 55 L 20 99 03/17/19 13:10 48 L 15 98 03/17/19 13:01 67 21 144/83 H 96 03/17/19 12:50 57 L 14 98 03/17/19 12:40 51 L 18 98 03/17/19 12:31 55 L 18 138/98 98 03/17/19 12:25 57 L 18 155/87 H 98 03/17/19 12:20 51 L 18 98 03/17/19 12:10 54 L 18 98 03/17/19 12:01 50 L 16 155/97 H 99 03/17/19 11:58 54 L 15 150/89 H 97 03/17/19 11:57 54 L 15 03/17/19 11:40 54 L 17 98 03/17/19 11:30 60 16 98 03/17/19 11:21 95 03/17/19 11:10 55 L 18 100 03/17/19 11:00 54 L 12 98 03/17/19 10:51 54 L 18 97 03/17/19 10:43 57 L 12 95 03/17/19 10:31 55 L 18 153/91 H 97 03/17/19 10:29 62 15 153/91 H 95 03/17/19 09:57 36.5 C 93 H 20 153/99 H 98
[2019-03-17 16:05] LABS: Prothrombin Time 10.7 Seconds (9.0-12.0)
[2019-03-17] MEDS: SODIUM CHLORIDE 0.9% 1000ML 1,000 ML IV SCH ×2 (16:15→21:49)
[2019-03-17] MEDS: FAMOTIDINE 20 MG in SYRINGE 3 ML IV SCH ×2 (16:24→21:39)
--- NOTE | 2019-03-17 16:56 | Emergency Department Note ---
Entered by Luis Torres acting as a scribe for Wilbur Solano DO History of Present Illness General Chief complaint: Abdominal Pain Stated complaint: STOAMCH PAINS Source: patient History of Present Illness Provider complaint: Abdominal pain Onset (ago): hour(s) (Last night) Location: abdomen Radiation: non-radiation Severity: similar to prior episodes Pain Consistency: + other (Waxing and waning) Maximum Pain Intensity: 8 Quality: + other (Pressure) Relieved By: + other (Vomiting) Exacerbated By: + none Associated symptoms: + nausea/vomiting; no fever/chills The patient is a 53 year old male who presents to the Emergency Room with complaints of waxing and waning generalized abdominal pain that started last night. The patient states that he has been nauseous and did vomit in triage, which helped relieve some of the pressure. He notes that these symptoms feel similar to a prior episode of abdominal pain he had last year when he had an infection and bowel obstruction. This episode did not require any surgery and he has never had surgery on his abdomen for any other reason. The patients last bowel movement was yesterday and he is still passing gas. Due to the reoccurring abdominal pain, he has had two colonoscopies done by Dr. Ellison as well as an endoscopy. The patient now follow up with Dr. Goodwin and has had Crohn's testing done, but it was negative. The patient denies any fevers. Home Medications Home Medications Medication Instructions Recorded Confirmed Type Probiotic 1 cap PO QAM 08/03/18 03/17/19 History atorvastatin 20 mg PO HS 08/03/18 03/17/19 History multivitamin 1 tab PO QAM 08/03/18 03/17/19 History Allergies Allergy/AdvReac Type Severity Reaction Status Date / Time No Known Allergies Allergy Verified 03/17/19 10:53 Past Med/Surg History Medical History History of non-Hodgkin's lymphoma (Chronic) Hyperlipidemia (Chronic) Stenosis of ileocecal valve Small bowel obstruction (Acute) Cancer LYMPHOMA (2005 DX) RADIATION Hyperlipidemia Surgical History History of biopsy NECK LYMPH NODES RT/LEFT (LYMPHOMA) History of colonoscopy History of esophagogastroduodenoscopy (EGD) History of tonsillectomy History of tooth extraction S/P LASIK surgery Family History Father Family history of diabetes mellitus Social History Preferred Language: Wolof Communication Ability: Effective Horse Race Timer Required: No Beliefs That Will Affect Care: None Current Living Situation: Spouse and Family Other Information That Helps Us Care for You: No Feels Safe at Home: Yes Safety Concerns: Feels Safe At This Time Smoking Status: Never smoker Do You Dip or Chew Tobacco: No Second Hand Exposure: Yes (RARELY) Hx Alcohol Use: No Hx Substance Use: No Review of Systems See HPI for pertinent positives & negatives. and A total of 10 systems reviewed and were otherwise negative Physical Exam Vital Signs Vital Signs - 24 hr 03/17/19 09:57 03/17/19 10:29 03/17/19 10:31 Temperature 36.5 C Temperature Source Oral Sepsis Recent Fever Within 48 Hours No Sepsis New/Unexplained Change in Mental Status No Sepsis Action Taken by Nursing No Action Required Pulse Rate 93 H 62 55 L Pulse Rate [Radial] Pulse Rate from SpO2 Sensor 62 Pulse Rhythm Regular Pulse Rhythm [Radial] Regular Pulse Strength [Radial] Normal Respiratory Rate 20 15 18 Respiratory Effort / Characteristics Non-Labored Respiratory Depth Normal Blood Pressure 153/99 H 153/91 H Blood Pressure [Right Arm] 153/91 H Blood Pressure Mean 117 111 Blood Pressure Mean [Right Arm] 111 Blood Pressure Position [Right Arm] Lying Pulse Oximetry 98 95 97 Oxygen Delivery Method Room Air Room Air 03/17/19 10:43 03/17/19 10:51 03/17/19 11:00 Temperature Temperature Source Sepsis Recent Fever Within 48 Hours Sepsis New/Unexplained Change in Mental Status Sepsis Action Taken by Nursing Pulse Rate 57 L 54 L 54 L Pulse Rate [Radial] Pulse Rate from SpO2 Sensor 59 L 56 L 53 L Pulse Rhythm Pulse Rhythm [Radial] Pulse Strength [Radial] Respiratory Rate 12 18 12 Respiratory Effort / Characteristics Respiratory Depth Blood Pressure Blood Pressure [Right Arm] Blood Pressure Mean Blood Pressure Mean [Right Arm] Blood Pressure Position [Right Arm] Pulse Oximetry 95 97 98 Oxygen Delivery Method 03/17/19 11:10 03/17/19 11:21 03/17/19 11:30 Temperature Temperature Source Sepsis Recent Fever Within 48 Hours Sepsis New/Unexplained Change in Mental Status Sepsis Action Taken by Nursing Pulse Rate 55 L 60 Pulse Rate [Radial] Pulse Rate from SpO2 Sensor 54 L 53 L 59 L Pulse Rhythm Pulse Rhythm [Radial] Pulse Strength [Radial] Respiratory Rate 18 16 Respiratory Effort / Characteristics Respiratory Depth Blood Pressure Blood Pressure [Right Arm] Blood Pressure Mean Blood Pressure Mean [Right Arm] Blood Pressure Position [Right Arm] Pulse Oximetry 100 95 98 Oxygen Delivery Method 03/17/19 11:40 03/17/19 11:57 03/17/19 11:58 Temperature Temperature Source Sepsis Recent Fever Within 48 Hours Sepsis New/Unexplained Change in Mental Status Sepsis Action Taken by Nursing Pulse Rate 54 L 54 L 54 L Pulse Rate [Radial] Pulse Rate from SpO2 Sensor 52 L 51 L Pulse Rhythm Pulse Rhythm [Radial] Pulse Strength [Radial] Respiratory Rate 17 15 15 Respiratory Effort / Characteristics Respiratory Depth Blood Pressure 150/89 H Blood Pressure [Right Arm] Blood Pressure Mean 109 Blood Pressure Mean [Right Arm] Blood Pressure Position [Right Arm] Pulse Oximetry 98 97 Oxygen Delivery Method 03/17/19 12:01 03/17/19 12:10 03/17/19 12:20 Temperature Temperature Source Sepsis Recent Fever Within 48 Hours Sepsis New/Unexplained Change in Mental Status Sepsis Action Taken by Nursing Pulse Rate 50 L 54 L 51 L Pulse Rate [Radial] Pulse Rate from SpO2 Sensor 52 L 53 L 53 L Pulse Rhythm Pulse Rhythm [Radial] Pulse Strength [Radial] Respiratory Rate 16 18 18 Respiratory Effort / Characteristics Respiratory Depth Blood Pressure 155/97 H Blood Pressure [Right Arm] Blood Pressure Mean 116 Blood Pressure Mean [Right Arm] Blood Pressure Position [Right Arm] Pulse Oximetry 99 98 98 Oxygen Delivery Method 03/17/19 12:25 03/17/19 12:31 03/17/19 12:40 Temperature Temperature Source Sepsis Recent Fever Within 48 Hours Sepsis New/Unexplained Change in Mental Status Sepsis Action Taken by Nursing Pulse Rate 55 L 51 L Pulse Rate [Radial] 57 L Pulse Rate from SpO2 Sensor 55 L 52 L Pulse Rhythm Pulse Rhythm [Radial] Pulse Strength [Radial] Respiratory Rate 18 18 18 Respiratory Effort / Characteristics Respiratory Depth Blood Pressure 138/98 Blood Pressure [Right Arm] 155/87 H Blood Pressure Mean 111 Blood Pressure Mean [Right Arm] 109 Blood Pressure Position [Right Arm] Pulse Oximetry 98 98 98 Oxygen Delivery Method Room Air 03/17/19 12:50 03/17/19 13:01 03/17/19 13:10 Temperature Temperature Source Sepsis Recent Fever Within 48 Hours Sepsis New/Unexplained Change in Mental Status Sepsis Action Taken by Nursing Pulse Rate 57 L 67 48 L Pulse Rate [Radial] Pulse Rate from SpO2 Sensor 53 L 66 48 L Pulse Rhythm Pulse Rhythm [Radial] Pulse Strength [Radial] Respiratory Rate 14 21 15 Respiratory Effort / Characteristics Respiratory Depth Blood Pressure 144/83 H Blood Pressure [Right Arm] Blood Pressure Mean 103 Blood Pressure Mean [Right Arm] Blood Pressure Position [Right Arm] Pulse Oximetry 98 96 98 Oxygen Delivery Method 03/17/19 13:20 03/17/19 13:31 03/17/19 13:40 Temperature Temperature Source Sepsis Recent Fever Within 48 Hours Sepsis New/Unexplained Change in Mental Status Sepsis Action Taken by Nursing Pulse Rate 55 L 68 58 L Pulse Rate [Radial] Pulse Rate from SpO2 Sensor 58 L 68 60 Pulse Rhythm Pulse Rhythm [Radial] Pulse Strength [Radial] Respiratory Rate 20 16 17 Respiratory Effort / Characteristics Respiratory Depth Blood Pressure 161/91 H Blood Pressure [Right Arm] Blood Pressure Mean 114 Blood Pressure Mean [Right Arm] Blood Pressure Position [Right Arm] Pulse Oximetry 99 98 97 Oxygen Delivery Method 03/17/19 13:50 03/17/19 14:01 03/17/19 14:10 Temperature Temperature Source Sepsis Recent Fever Within 48 Hours Sepsis New/Unexplained Change in Mental Status Sepsis Action Taken by Nursing Pulse Rate 63 57 L 58 L Pulse Rate [Radial] Pulse Rate from SpO2 Sensor 64 56 L 58 L Pulse Rhythm Pulse Rhythm [Radial] Pulse Strength [Radial] Respiratory Rate 15 17 19 Respiratory Effort / Characteristics Respiratory Depth Blood Pressure 141/100 H Blood Pressure [Right Arm] Blood Pressure Mean 113 Blood Pressure Mean [Right Arm] Blood Pressure Position [Right Arm] Pulse Oximetry 98 99 98 Oxygen Delivery Method 03/17/19 14:20 Temperature Temperature Source Sepsis Recent Fever Within 48 Hours Sepsis New/Unexplained Change in Mental Status Sepsis Action Taken by Nursing Pulse Rate 69 Pulse Rate [Radial] Pulse Rate from SpO2 Sensor 71 Pulse Rhythm Pulse Rhythm [Radial] Pulse Strength [Radial] Respiratory Rate 19 Respiratory Effort / Characteristics Respiratory Depth Blood Pressure Blood Pressure [Right Arm] Blood Pressure Mean Blood Pressure Mean [Right Arm] Blood Pressure Position [Right Arm] Pulse Oximetry 98 Oxygen Delivery Method GENERAL: Sitting up in bed, alert, well appearing, well nourished, no distress, non-toxic EYE EXAM: normal conjunctiva. OROPHARYNX: no exudate, no erythema, lips, buccal mucosa, and tongue normal and mucous membranes are moist NECK: supple, no nuchal rigidity, no adenopathy, non-tender LUNGS: Clear to auscultation. Normal chest wall mechanics HEART: no murmurs, S1 normal and S2 normal ABDOMEN: abdomen soft, mildly diffuse tenderness throughout abdomen, normo- active bowel, sounds, no masses, no rebound or guarding. BACK: Back is symmetrical on inspection and there is no deformity, no midline tenderness, no CVA tenderness. SKIN: no rashes and no bruising UPPER EXTREMITIES: upper extremities are grossly normal. LOWER EXTREMITIES: No pitting edema. NEURO EXAM: Normal sensorium, cranial nerves II-XII grossly intact, normal speech, no gross weakness of arms, no gross weakness of legs. Course ED COURSE: Vital signs were reviewed and showed hypertension and bradycardia. The patients medical record was reviewed The above diagnostic studies were performed and reviewed. ED treatments and interventions as stated above. 1015: The patient was evaluated in room C08. A complete history and physical examination was performed. 1320: I spoke to Luciano [facility] Surgery GISSELL about the patient's case. 1325: Upon reevaluation, the patient is resting in bed. I discussed my findings with the patient and he understands and agrees with the treatment plan. 1340: I spoke to Dr. Raji Jorgensen [facility] Hospitalist about the patient's case and he is accepting him for further evaluation. Based on the patients age, coexisting illnesses, exam and lab findings the decision to treat as an inpatient was made. The patient remained stable while under my care. The patient will be evaluated for further management. Consultations Consultation #1: I spoke to Luciano [facility] General Surgery GISSELL about the patient's case. Time: 13:20 Consultation #2: I spoke to Dr. Raji Jorgensen [facility] Hospitalphil about the patient's case and he is accepting him for further evaluation. Time: 13:40 Administered Medications Sodium Chloride (Nss 1000ml) 1,000 mls @ 130 mls/hr IV .[id number] VICKY Stop: 04/16/19 15:05 Last Admin: 03/17/19 16:15 Dose: 100 mls/hr Documented by: [id number] Famotidine 20 mg/ Syringe 5 mls @ 2.5 mls/min IV Q12 VICKY Stop: 04/16/19 15:29 Last Admin: 03/17/19 16:24 Dose: 2.5 mls/min Documented by: [id number] Ioversol (Optiray 320 100ml) 94 ml IV ONCE PRN PRN Reason: Interaction Checking Stop: 03/21/19 11:46 Last Admin: 03/17/19 11:48 Dose: 94 ml Documented by: [id number] Discontinued Medications Sodium Chloride (Nss 1000ml) 1,000 mls @ 999 mls/hr IV .Q1H1M ONE Stop: 03/17/19 11:21 Last Infusion: 03/17/19 12:26 Dose: 0 mls/hr Documented by: [id number] Admin: 03/17/19 10:32 Dose: 999 mls/hr Documented by: [id number] Morphine Sulfate (Morphine Sulfate) 6 mg IV NOW STA Stop: 03/17/19 10:23 Last Admin: 03/17/19 10:33 Dose: 6 mg Documented by: [id number] Morphine Sulfate (Morphine Sulfate) 4 mg IV NOW STA Stop: 03/17/19 13:11 Last Admin: 03/17/19 13:27 Dose: 4 mg Documented by: [id number] Ondansetron HCl (Zofran) 4 mg IV NOW STA Stop: 03/17/19 10:22 Last Admin: 03/17/19 10:33 Dose: 4 mg Documented by: [id number] Medical Decision Making Differential Diagnosis Differential diagnoses includes but is not limited to gastritis, peptic ulcer disease, GERD, gallbladder disease, pancreatitis, small bowel obstruction, acute coronary syndrome, pericarditis, ischemic bowel, irritable bowel disease, irritable bowel syndrome, appendicitis, diverticulitis, malignancy, hernia, urinary tract infection, torsion, perforation, trauma, infectious. Medical Records Attestation: I reviewed the patient's medical records. Home Medications Current Medication List: was personally reviewed by me Laboratory Data Attestation: I reviewed the patient's lab results. Result diagrams: 03/17/19 10:15 03/17/19 10:15 Lab Results 03/17/19 03/17/19 03/17/19 Range/Units 10:15 10:15 10:15 WBC 9.63 (4.8-10.8) K/uL RBC 4.80 (4.7-6.1) M/uL Hgb 15.2 (14.0-18.0) g/dL Hct 42.7 (42-52) % MCV 89.0 (80-100) fL MCH 31.7 (25-34) pg MCHC 35.6 (32-36) g/dL RDW Std Deviation 41.9 (36.4-46.3) fL RDW Coeff of Song 12.8 (11.5-14.5) % Plt Count 219 (130-400) K/uL MPV 10.4 (7.4-10.4) fL Immature Gran % (Auto) 0.2 % Neut % (Auto) 80.9 % Lymph % (Auto) 14.5 % [place] % (Auto) 3.9 % Eos % (Auto) 0.2 % Baso % (Auto) 0.3 % Immature Gran # (Auto) 0.02 (0.00-0.02) K/uL Neut # (Auto) 7.78 H (1.4-6.5) K/uL Lymph # (Auto) 1.40 (1.2-3.4) K/uL [place] # (Auto) 0.38 (0.11-0.59) K/uL Eos # (Auto) 0.02 (0-0.5) K/uL Baso # (Auto) 0.03 (0-0.2) K/uL PT 10.7 (9.0-12.0) Seconds INR 1.0 (0.9-1.1) APTT 27.0 (21.0-31.0) Seconds PTT Ratio 1.0 Sodium 139 (136-145) mmol/L Potassium 4.3 (3.5-5.1) mmol/L Chloride 110 H (98-107) mmol/L Carbon Dioxide 23 (21-32) mmol/L Anion Gap 6.0 (3-11) BUN 17 (7-18) mg/dl Creatinine 1.16 (0.6-1.4) mg/dl Est Cr Clr Drug Dosing 83.2 ml/min Est GFR ( Amer) 82.9 Est GFR (Non-Af Amer) 71.5 BUN/Creatinine Ratio 14.4 (10-20) Glucose 110 H (70-99) mg/dl Calcium 9.2 (8.5-10.1) mg/dl Total Bilirubin 0.9 (0.2-1) mg/dl AST 18 (15-37) U/L ALT 26 (12-78) U/L Alkaline Phosphatase 116 (45-117) U/L Total Protein 7.0 (6.4-8.2) gm/dl Albumin 3.8 (3.4-5.0) gm/dl Globulin 3.2 (2.5-4.0) gm/dl Albumin/Globulin Ratio 1.2 (0.9-2) Lipase 100 (73-393) U/L Urine Color Urine Appearance (Clear) Urine pH (4.5-7.5) Ur Specific [place] (1.000-1.030) Urine Protein (Negative) Urine Glucose (UA) (Negative) Urine Ketones (Negative) Urine Blood (Negative) Urine Nitrite (Negative) Urine Bilirubin (Negative) Urine Urobilinogen (Negative) Ur Leukocyte Esterase (Negative) 03/17/19 Range/Units 11:57 WBC (4.8-10.8) K/uL RBC (4.7-6.1) M/uL Hgb (14.0-18.0) g/dL Hct (42-52) % MCV (80-100) fL MCH (25-34) pg MCHC (32-36) g/dL RDW Std Deviation (36.4-46.3) fL RDW Coeff of Song (11.5-14.5) % Plt Count (130-400) K/uL MPV (7.4-10.4) fL Immature Gran % (Auto) % Neut % (Auto) % Lymph % (Auto) % [place] % (Auto) % Eos % (Auto) % Baso % (Auto) % Immature Gran # (Auto) (0.00-0.02) K/uL Neut # (Auto) (1.4-6.5) K/uL Lymph # (Auto) (1.2-3.4) K/uL [place] # (Auto) (0.11-0.59) K/uL Eos # (Auto) (0-0.5) K/uL Baso # (Auto) (0-0.2) K/uL PT (9.0-12.0) Seconds INR (0.9-1.1) APTT (21.0-31.0) Seconds PTT Ratio Sodium (136-145) mmol/L Potassium (3.5-5.1) mmol/L Chloride (98-107) mmol/L Carbon Dioxide (21-32) mmol/L Anion Gap (3-11) BUN (7-18) mg/dl Creatinine (0.6-1.4) mg/dl Est Cr Clr Drug Dosing ml/min Est GFR ( Amer) Est GFR (Non-Af Amer) BUN/Creatinine Ratio (10-20) Glucose (70-99) mg/dl Calcium (8.5-10.1) mg/dl Total Bilirubin (0.2-1) mg/dl AST (15-37) U/L ALT (12-78) U/L Alkaline Phosphatase (45-117) U/L Total Protein (6.4-8.2) gm/dl Albumin (3.4-5.0) gm/dl Globulin (2.5-4.0) gm/dl Albumin/Globulin Ratio (0.9-2) Lipase (73-393) U/L Urine Color Yellow Urine Appearance Clear (Clear) Urine pH 5.0 (4.5-7.5) Ur Specific [place] 1.029 (1.000-1.030) Urine Protein Negative (Negative) Urine Glucose (UA) Negative (Negative) Urine Ketones Negative (Negative) Urine Blood Negative (Negative) Urine Nitrite Negative (Negative) Urine Bilirubin Negative (Negative) Urine Urobilinogen Negative (Negative) Ur Leukocyte Esterase Negative (Negative) Imaging Data Radiologist's Impression: Radiology results as stated below per my review and the radiologist's interpretation: CT abd pelvis IV con only CLINICAL HISTORY: 53 years-old Male presenting with abd pain ? sbo. TECHNIQUE: Multidetector CT of the abdomen and pelvis was performed after the administration of intravenous contrast. IV contrast: 94 mL of Optiray 320. One or more dose lowering techniques were used consistent with the principles of ALARA (as low as reasonably achievable), including automatic exposure control, mA or kV adjustment to individual patient size, and/or use of iterative reconstruction. COMPARISON: 04/17/2018. CT DOSE (mGy.cm): The estimated cumulative dose is 574.48 mGy.cm. 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 Lung bases: Normal heart size. No pericardial or pleural effusion. Minimal dependent changes likely atelectasis. Liver: Normal morphology. No liver lesion. Patent hepatic vasculature. Biliary: No intrahepatic or extrahepatic biliary ductal dilatation. Normal gallbladder. Pancreas: Normal. Spleen: Normal. Adrenal glands: Normal. Kidneys and ureters: Multiple well-defined hypodense lesions in both kidneys as on prior exam, likely simple cyst. Adjacent indeterminate exophytic lesions arising from the posterior aspect of the interpolar region of the left kidney are unchanged from prior (series 3 images 151 and 167). No nephrolithiasis or hydronephrosis. Ureters nondistended. Bladder: Normal. Pelvic organs: Prostate and seminal vesicles normal. Bowel: Normal appendix. Dilated small bowel in the distal ileum filled with feces with a diameter of over 4 cm. Trace perienteric fluid and edema. Focal transition point in the right lower quadrant (series 3 image 363). The obstructing loop appears mildly thick-walled. No gross evidence of a mass. Smooth tapering of upstream small bowel without convincing evidence of a closed loop obstruction. Peritoneal cavity: Trace perienteric free fluid. No extraluminal or free intraperitoneal gas. Lymph nodes: No enlarged lymph nodes in the abdomen or pelvis. Vasculature: Aorta and IVC patent and normal in caliber. Abdominal wall: Small fat-containing umbilical hernia. Small fat-containing right inguinal hernia. Musculoskeletal: Degenerative changes of the spine. IMPRESSION: 1. High-grade partial or complete small bowel obstruction of the distal ileum at a focal transition point in the right lower quadrant. This may relate to an adhesion versus an inflammatory stricture given suggestion of downstream small bowel wall thickening. 2. Indeterminate left renal lesions unchanged from prior. Consider ultrasound for assessment for possible solid lesion. Electronically signed by: Kleber Andrade M.D. 03/17/2019 1:04 PM Blood Pressure Blood Pressure Findings: Elevated blood pressure Blood Pressure Disposition: further management by hospitalist NIKITA Narrative Patient is a 53-year-old male who presents the ER for abdominal pain, bloating vomiting with a history of small bowel obstructions but a [place]anda belly. IV was established blood work was obtained. Labs show no significant leukocytosis or anemia. INR is unremarkable. BMP along with LFTs bilirubin and lipase is unremarkable. UA was negative. CT abdomen pelvis shows a high-grade partial/complete small bowel obstruction. This was discussed with general surg jocelyn and they recommended admission to the hospitalist. Discussed the case with hospitalist as well. Recommended an NG tube but patient declined. Patient was given IV fluids and IV narcotics. He was updated bedside. He was admitted to the hospitalist with high-grade partial/complete small bowel obstruction. Impression & Plan Small bowel obstruction, Stenosis of ileocecal valve Discharge Plan Visit Data *Final* Discharge Date/Time: 03/17/19 14:37 Chief Complaint: Abdominal Pain Stated Complaint: STOAMCH PAINS ED Provider: Wilbur Solano Discharge Problem: Small bowel obstruction, Stenosis of ileocecal valve Patient Disposition: Admitted As Inpatient Discharge Instructions Interventions: ED Discharge Assessment Last Done: 03/17/19 14:37 The scribe's documentation has been prepared under my direction and personally reviewed by me in its entirety. I confirm that the note above accurately re flects all work, treatment, procedures, and medical decision making performed by me.
[2019-03-17] MEDS: MoRPHine SULFATE 2 MG/ML CARP IV PRN ×2 (18:17→21:45)
[2019-03-17] MEDS: ENOXAPARIN INJ 40 MG/0.4 ML SYR SQ SCH (18:18)
[2019-03-18] MEDS: SODIUM CHLORIDE 0.9% 1000ML 1,000 ML IV SCH ×3 (05:27→22:09)
[2019-03-18 07:28] LABS: Basophils # (auto) 0.02 K/uL (0-0.2); Basophils % (auto) 0.3 %; Eosinophils # (auto) 0.07 K/uL (0-0.5); Eosinophils % (auto) 1.1 %; Hematocrit (blood only) 40.5 % (42-52); Hemoglobin 13.9 g/dL (14.0-18.0); Immature Granulocytes # (auto) 0.01 K/uL (0.00-0.02); Immature Granulocytes % (auto) 0.2 %; Lymphocytes # (auto) 1.64 K/uL (1.2-3.4); Lymphocytes % (auto) 26.8 %; Mean Corpuscular Hgb Conc 34.3 g/dL (32-36); Mean Platelet Volume 10.6 fL (7.4-10.4); Monocytes % (auto) 9.8 %; Neutrophils # (auto) 3.79 K/uL (1.4-6.5); Neutrophils % (auto) 61.8 %; Platelet Count 189 K/uL (130-400); RDW Coefficient of Variation 13.1 % (11.5-14.5); RDW Standard Deviation 44.1 fL (36.4-46.3); White Blood Count 6.13 K/uL (4.8-10.8)
[2019-03-18 07:55] LABS: Albumin Level 3.1 gm/dl (3.4-5.0); Calcium 8.5 mg/dl (8.5-10.1); Creatinine Clr Calc Pharmacy 89.4 ml/min; Est GFR (African American) 90.3; Est GFR (Non-African American) 77.9; Potassium 3.9 mmol/L (3.5-5.1)
[2019-03-18 07:58] LABS: Albumin Globulin Ratio 1.2 (0.9-2); Globulin 2.7 gm/dl (2.5-4.0); Total Protein 5.8 gm/dl (6.4-8.2)
[2019-03-18] MEDS: FAMOTIDINE 20 MG in SYRINGE 3 ML IV SCH ×2 (09:03→20:48)
--- NOTE | 2019-03-18 10:22 | Surgery Progress Note ---
Date of Service March 18, 2019 Assessment & Plan (1) Small bowel obstruction: suspect IBD/Crohn's. no indication for surgery currently. clinically improved awaiting GI input will follow along. Subjective feeling much better this AM no n/v overnight. denies abdominal pain currently +flatus/no bm yet Physical Exam Physical Exam: alert. nad abd: soft. mild distension. +bs's. nontender Results & Data Vital Signs (Past 12 Hours) Vital Signs Temp Pulse Resp BP BP Pulse Ox 03/18/19 07:05 36.5 C 63 16 131/83 98 03/17/19 22:59 36.6 C 63 14 129/82 97
--- NOTE | 2019-03-18 12:01 | XRay Report ---
KUB CLINICAL HISTORY: Small bowel obstruction. COMPARISON STUDY: CT of the abdomen and pelvis March 17, 2019. FINDINGS: Mild small bowel dilatation has improved since exam of March 17, 2019. There are scattered c olonic and rectal gas. IMPRESSION: Findings suggestive of an improving small bowel obstruction. Electronically signed by: Rajendra Bangura M.D. 03/18/2019 12:00 PM
[2019-03-18] MEDS: ENOXAPARIN INJ 40 MG/0.4 ML SYR SQ SCH (17:13)
[2019-03-18] MEDS ORDERED: Nursing to Pharmacy Communication ONE (22:10)
--- NOTE | 2019-03-18 23:48 | Hospitalist Progress Note ---
Date of Service March 18, 2019 Assessment & Plan (1) Small bowel obstruction: N.p.o. IV fluids. Treat nausea as needed. Consult general surgery and gastroenterology Awaiting input from Gastroenterology. Will remain NPO today. Concern over possiblity of IBD as he has no history of abdominal surgery. Given that patient may be improving, will hold off steroids for now. (2) Hyperlipidemia: Statin therapy is on hold (3) History of non-Hodgkin's lymphoma: Treated and resolved in 2005 (4) DVT prophylaxis: Lovenox subcu Subjective Patient reports improvement in his pain. Patient reports he passed some gas. Patient denies any nausea, or vomiting. Review of Systems Review of Systems: Constitutional-no fever or chills ENT-no blurred vision, no double vision, no epistaxis, no sore throat Respiratory-no cough, no wheezing, no shortness of breath Cardiac-no palpitations, no chest pain, no syncope GI-diffuse mild abdominal pain. Some nausea and vomiting. No focal tenderness. No bloating -no urinary retention, no urinary incontinence, no dysuria, no hematuria Musculoskeletal-no joint pain, no muscle tenderness Skin-no bruising, no rashes, no pruritus Neuro-no isolated weakness, no paresthesia, no weakness Psych-no depression, no anxiety Physical Exam Physical Exam: General-alert and oriented x3, no fevers, no chills HEENT-head atraumatic and normocephalic, TMs intact bilaterally, pupils equal and reactive to light, extraocular muscles intact Neck-no lymphadenopathy or thyromegaly, trachea midline Chest-clear to auscultation percussion. No rales wheezing or rhonchi Cardiac-regular rate and rhythm, normal S1 and S2, no murmurs Abdomen-abdomen soft with active bowel sounds. Nondistended. No tenderness to palpation. No rebound or guarding. No masses Extremities-no cyanosis, clubbing, or edema Neuro-cranial nerves II through XII intact, motor and sensory function within normal limits, strength symmetrical 5/5, no focal deficits Psych-normal affect, normal mood Results & Data Vital Signs (Past 12 Hours) Vital Signs Temp Pulse Pulse Resp BP Pulse Ox 03/18/19 22:57 36.7 C 72 14 132/80 98 03/18/19 15:00 36.7 C 65 20 136/89 99 PG Care Time/CCT Total # of Minutes Spent Total Time Spent with Patient: Total time spent is greater than 50% in coordination of care (as documented) at patient's floor/unit and/or counseling patient:
[2019-03-19] MEDS: SODIUM CHLORIDE 0.9% 1000ML 1,000 ML IV SCH ×2 (05:55→13:32)
[2019-03-19 06:46] LABS: Basophils # (auto) 0.03 K/uL (0-0.2); Basophils % (auto) 0.5 %; Eosinophils # (auto) 0.07 K/uL (0-0.5); Eosinophils % (auto) 1.3 %; Hematocrit (blood only) 41.2 % (42-52); Hemoglobin 14.4 g/dL (14.0-18.0); Immature Granulocytes # (auto) 0.01 K/uL (0.00-0.02); Immature Granulocytes % (auto) 0.2 %; Lymphocytes # (auto) 1.41 K/uL (1.2-3.4); Lymphocytes % (auto) 25.3 %; Mean Corpuscular Volume 91.4 fL (80-100); Mean Platelet Volume 10.2 fL (7.4-10.4); Monocytes # (auto) 0.44 K/uL (0.11-0.59); Monocytes % (auto) 7.9 %; Neutrophils # (auto) 3.61 K/uL (1.4-6.5); Neutrophils % (auto) 64.8 %; Platelet Count 195 K/uL (130-400); RDW Coefficient of Variation 12.7 % (11.5-14.5); RDW Standard Deviation 42.7 fL (36.4-46.3); Red Blood Count 4.51 M/uL (4.7-6.1); White Blood Count 5.57 K/uL (4.8-10.8)
[2019-03-19 07:13] LABS: Albumin Level 3.6 gm/dl (3.4-5.0); BUN Creatinine Ratio 12.4 (10-20); Calcium 8.5 mg/dl (8.5-10.1); Creatinine Clr Calc Pharmacy 92.8 ml/min; Est GFR (African American) 94.6; Est GFR (Non-African American) 81.6; Potassium 3.9 mmol/L (3.5-5.1)
[2019-03-19 07:27] LABS: Albumin Globulin Ratio 1.2 (0.9-2); Bilirubin,Total 1.5 mg/dl (0.2-1); Total Protein 6.6 gm/dl (6.4-8.2)
[2019-03-19] MEDS: MoRPHine SULFATE 2 MG/ML CARP IV PRN (07:36)
[2019-03-19] MEDS ORDERED: ACETAMINOPHEN 325 MG TAB PO STA (08:02)
[2019-03-19] MEDS: FAMOTIDINE 20 MG in SYRINGE 3 ML IV SCH ×2 (08:26→20:30)
--- NOTE | 2019-03-19 10:59 | Surgery Progress Note ---
Date of Service March 19, 2019 Assessment & Plan (1) Small bowel obstruction: clinically doing better suspect crohn's. ? need for empiric treatment of IBD. awaiting GI input will start clears. no indication for surgery at this point in time Subjective pt feeling well. still no bm yet denies pain. no n/v Physical Exam Physical Exam: alert. nad abd: soft .slightly less distension than yesterday. nt. Results & Data Vital Signs (Past 12 Hours) Vital Signs Temp Pulse Resp BP Pulse Ox 03/19/19 07:08 36.7 C 65 16 137/88 98
--- NOTE | 2019-03-19 13:14 | History & Physical Report ---
Date of Service March 19, 2019 History of Present Illness Chief Complaint: 53 yo male with a history of reported prior Crohn's disease though this diagnosis is somewhat in question per chart review of [facility]'s VCE record. He is followed by Dr. Ellison for ? IBD. He has had intermittent episodes of nausea, vomiting and diagnosed with SBO's in the past 4-5 years. It appears these episodes have mostly resolved on their own in the past. He was hospitalized once in the summer of 2017 at [facility] for nausea/vomiting - diagnosed with SBO with Ct showing a transition point in the rlq. SBFT during that admission reportedly normal in 04/13 - not clear to me when that wa done during that admission. It appears the sbo resolved on it's own. Thereafter, he underwent a colonoscopy mid 05/14 with findings of a stenotic IC valve. He was diagnosed with Crohn's per Dr. Ellison and started on prednisone. Repeat colonoscopy by Dr. Ellison in 08/14, off steroids, showed a normal IC valve and TI. He had a brief episode of nausea/vomiting in 10/15. Then four episodes in 01/13 with imaging suggestive of sbo. He was referred to [facility] for vce. He was seen by Dr. Avila in 02/12 in the office for potential vce given [facility] does not do vce's, was to undergo a vce study despite the risk for impaction but appears this was never done. No prior abdominal surgeries - history of nhl treated with rt and chemo in 2005. Unclear to me as to what his maintenance regimen is given ? prior diagnosis of crohn's per Dr. Ellison per initial colon in 05/14. He was admitted Wednesday through the ER for imaging consistent with SBO. Seen by surgery - no plans for surgery. Tolerating liquids currently Reportedly the consult was called Wednesday to Dr. Ellison but I am informed of the consult for the first time on Wednesday afternoon. Per discussion with him this afternoon, he is feeling better- tolerating liquids, having a bowel movement. He is not certain was ever to have a colonoscopy again. Primary Care Provider: Renny Bundy MD Allergies Allergy/AdvReac Type Severity Reaction Status Date / Time No Known Allergies Allergy Verified 03/17/19 10:53 Home Medications Home Medications Medication Instructions Recorded Confirmed Type Probiotic 1 cap PO QAM 08/03/18 03/17/19 History atorvastatin 20 mg PO HS 08/03/18 03/17/19 History multivitamin 1 tab PO QAM 08/03/18 03/17/19 History Past Med/Surg History Medical History History of non-Hodgkin's lymphoma (Chronic) Hyperlipidemia (Chronic) Stenosis of ileocecal valve Small bowel obstruction (Acute) Cancer LYMPHOMA (2006 DX) RADIATION Hyperlipidemia Surgical History History of biopsy NECK LYMPH NODES RT/LEFT (LYMPHOMA) History of colonoscopy History of esophagogastroduodenoscopy (EGD) History of tonsillectomy History of tooth extraction S/P LASIK surgery Family History Father Family history of diabetes mellitus Social History Preferred Language: Greenlandic Communication Ability: Effective 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 Required: No Beliefs That Will Affect Care: None Current Living Situation: Spouse and Family Other Information That Helps Us Care for You: No Feels Safe at Home: Yes Safety Concerns: Feels Safe At This Time Smoking Status: Never smoker Do You Dip or Chew Tobacco: No Second Hand Exposure: Yes (RARELY) Hx Alcohol Use: No Hx Substance Use: No Review of Systems All systems reviewed & are unremarkable except as noted in HPI & below Physical Exam Physical Exam: Well nourished male in nad Eyes: PERRL, conjunctivae normal, anicteric sclerae Chest (Breasts): Additional Comments: Normal excursion of the chest Gastrointestinal (Abdomen): normal bowel sounds, soft, nontender, no hepatosplenomegaly Neurologic: PERRL, EOMI, accommodation nl, no face palsy, no dysarthria Results & Data Vital Signs (Past 12 Hours) Vital Signs Temp Pulse Resp BP Pulse Ox 03/19/19 07:08 36.7 C 65 16 137/88 98 Labs and imaging reviewed Supervising Physician Co-Signing Physician Notes 53 yo male with a history of ? Crohn's per colonoscopy in 818, followed by Dr. Ellison, admitted now with SBO that appeared to be resolving. He's tolerating clears. Unclear what his maintenace regimen is for ? prior diagnosis of Crohn's- per my chart review it seems like he was only on a brief course of steroids in the summer of 2018. Continue with clears today. Dr Ellison's team can determine need for inpatient versus outpatient colonoscopy tomorrow and prep accordingly if indicated. Check esr/crp.
[2019-03-19] MEDS: ENOXAPARIN INJ 40 MG/0.4 ML SYR SQ SCH (15:42)
--- NOTE | 2019-03-19 23:55 | Hospitalist Progress Note ---
Date of Service March 19, 2019 Assessment & Plan (1) Small bowel obstruction: Treat nausea as needed. Consult general surgery and gastroenterology Awaiting input from Gastroenterology. Started clear liquid today. iWill await further input from Dr. Ellison on Wednesday. Concern over possiblity of IBD as he has no history of abdominal surgery. Given that patient may be improving, will hold off steroids for now. Patient also had a BM this AM. patient will continue to ambulate. Anticipate discharge in next 24-48 hours (2) Hyperlipidemia: Statin therapy is on hold (3) History of non-Hodgkin's lymphoma: Treated and resolved in 2005 (4) DVT prophylaxis: Lovenox subcu Subjective Patient reports feeling better. Patient is tolerating clear liquid diet. Patient rpeorts he had a BM after his diet was reinstituted this AM. Patient does continue to report some distention in his abdomen. Again mentioned to community development manager that GI had not sen patient. Received phone call by Dr Gutierrez. Does not believ Gi would do a colonoscopy in house. Continue on clear liquids for now. Review of Systems Review of Systems: All systems reviewed & are unremarkable except as noted in HPI & below Physical Exam Physical Exam: General-alert and oriented x3, no fevers, no chills HEENT-head atraumatic and normocephalic, TMs intact bilaterally, pupils equal and reactive to light, extraocular muscles intact Neck-no lymphadenopathy or thyromegaly, trachea midline Chest-clear to auscultation percussion. No rales wheezing or rhonchi Cardiac-regular rate and rhythm, normal S1 and S2, no murmurs Abdomen-abdomen soft with no bowel sounds. mildly distended. No tenderness to palpation. No rebound or guarding. No masses Extremities-no cyanosis, clubbing, or edema Neuro-cranial nerves II through XII intact, motor and sensory function within normal limits, strength symmetrical 5/5, no focal deficits Psych-normal affect, normal mood Results & Data Vital Signs (Past 12 Hours) Vital Signs Temp Pulse Resp BP Pulse Ox 03/19/19 15:00 36.5 C 53 L 20 144/79 H 99 PG Care Time/CCT Total # of Minutes Spent Total Time Spent with Patient: Total time spent is greater than 50% in coordination of care (as documented) at patient's floor/unit and/or counseling patient:
[2019-03-20 06:55] LABS: Basophils # (auto) 0.05 K/uL (0-0.2); Eosinophils # (auto) 0.08 K/uL (0-0.5); Eosinophils % (auto) 1.7 %; Hematocrit (blood only) 40.2 % (42-52); Hemoglobin 14.3 g/dL (14.0-18.0); Immature Granulocytes # (auto) 0.01 K/uL (0.00-0.02); Immature Granulocytes % (auto) 0.2 %; Lymphocytes # (auto) 1.78 K/uL (1.2-3.4); Lymphocytes % (auto) 37.2 %; Mean Corpuscular Hgb Conc 35.6 g/dL (32-36); Mean Corpuscular Volume 89.1 fL (80-100); Mean Platelet Volume 10.5 fL (7.4-10.4); Monocytes % (auto) 8.4 %; Neutrophils # (auto) 2.46 K/uL (1.4-6.5); Neutrophils % (auto) 51.5 %; Platelet Count 205 K/uL (130-400); RDW Coefficient of Variation 12.6 % (11.5-14.5); RDW Standard Deviation 40.7 fL (36.4-46.3); Red Blood Count 4.51 M/uL (4.7-6.1); White Blood Count 4.78 K/uL (4.8-10.8)
[2019-03-20 07:32] LABS: Albumin Level 3.4 gm/dl (3.4-5.0); C Reactive Protein 0.33 mg/dl (0-0.29); Calcium 9.1 mg/dl (8.5-10.1); Creatinine Clr Calc Pharmacy 91.1 ml/min; Est GFR (African American) 92.4; Est GFR (Non-African American) 79.7
[2019-03-20 07:35] LABS: Albumin Globulin Ratio 1.2 (0.9-2); Bilirubin,Total 1.1 mg/dl (0.2-1); Globulin 2.8 gm/dl (2.5-4.0); Total Protein 6.2 gm/dl (6.4-8.2)
[2019-03-20] MEDS: FAMOTIDINE 20 MG in SYRINGE 3 ML IV SCH ×2 (08:41→20:23)
--- NOTE | 2019-03-20 10:35 | Gastroenterology Progress Note ---
Date of Service March 20, 2019 Assessment & Plan (1) Small bowel obstruction: Patient is a 53 yo male with a questionable history of Crohn's Disease who is admitted with a SBO. -Plan for colonoscopy tomorrow for further evaluation. NPO after midnight. Clear liquids today. -Further recommendations pending results of colonoscopy -Supportive care per primary team Thank you for allowing us to participate in the care of this patient. If you should have any further questions or concerns, do not hesitate to contact us at extension [phone] or [phone]. Supervising Physician Co-Signing Physician Notes Agree with GALINA Petersen as above Abd: Soft, NT, ND, +BS IBD-7 panel reviewed from office and negative Continue current therapy Bowel prep tonight Colonoscopy in AM Subjective Patient is a 53 yo male with possible Crohn's Disease hospitalized with SBO. He reports he is pain-free this AM. He is passing flatus and reports that he feels the need to have a bowel movement. He recently saw Dr. Goodwin for consideration of a VCE. Patient has had an abnormal colonoscopy in April, a normal colonoscopy in July, and an IBD7 blood panel that was not consistent with IBD. He denies any new symptoms at present. Vitals and labs are stable and without significant changes. Review of Systems Constitutional: no fever and no chills Respiratory: no cough Cardiovascular: no chest pain Gastrointestinal: + bloating; no abdominal pain, no nausea, no vomiting, no diarrhea/loose stools and no blood in stools Physical Exam Constitutional: WD/WN, vitals as above ENMT: external ear and nose normal, oropharynx normal Respiratory: normal respiratory effort, lungs clear to auscultation Cardiovascular: RRR, no murmur, no edema Gastrointestinal (Abdomen): normal bowel sounds, soft, nontender, no hepatosplenomegaly Musculoskeletal: no cyanosis or clubbing, extremities motor strength 5/5 Skin: no rashes, warm and dry Psychiatric: A+Ox3, euthymic affect Results & Data Vital Signs (Past 12 Hours) Vital Signs Temp Pulse Resp BP BP Pulse Ox 03/20/19 06:52 36.5 C 54 L 19 146/87 H 99 03/19/19 23:09 36.6 C 58 L 16 127/80 99
--- NOTE | 2019-03-20 11:26 | Hospitalist Progress Note ---
Date of Service March 20, 2019 Assessment & Plan (1) Small bowel obstruction: Consulted general surgery and gastroenterology Per gastro - colonoscopy tomorrow Concern over possiblity of IBD as he has no history of abdominal surgery. Given that patient may be improving, will hold off steroids for now. Taking in clears and had bowel movement (2) Hyperlipidemia: Statin therapy is on hold (3) History of non-Hodgkin's lymphoma: Treated and resolved in 2005 (4) DVT prophylaxis: Lovenox subcu - will hold for tomorrow for colonoscopy Patient has been ambulating frequently Subjective Feeling better, no pain, tolerating clears, had bowel movement. Will prep for colonoscopy tomorrow. Review of Systems Review of Systems: All systems reviewed & are unremarkable except as noted in HPI & below Physical Exam Physical Exam: General: no distress Eyes: normal inspection, PERLL Respiratory: chest non tender, clear to auscultation, normal breath sounds, no respiratory distress, no accessory muscle use Cardiac: regular rate and rhythm, no rub or gallop, no murmur, no edema, no jvd GI/: active bowel sounds, no abd pain or tenderness, soft, non distended Extremities: normal range of motion, normal strength, non tender Neuro/Psych: alert and oriented x 3, normal mood and affect Skin: normal color, dry Results & Data Vital Signs (Past 12 Hours) Vital Signs Temp Pulse Resp BP Pulse Ox 03/20/19 06:52 36.5 C 54 L 19 146/87 H 99 PG Care Time/CCT Total # of Minutes Spent Total Time Spent with Patient: Total time spent is greater than 50% in coordination of care (as documented) at patient's floor/unit and/or counseling patient:
[2019-03-20] MEDS: LAVAGE SOLUTION 4000ML PO SCH (18:04)
[2019-03-21] MEDS: LAVAGE SOLUTION 4000ML PO SCH (03:10)
[2019-03-21] MEDS: FAMOTIDINE 20 MG in SYRINGE 3 ML IV SCH (07:59)
--- NOTE | 2019-03-21 09:34 | History & Physical Bridge Note ---
Date of Service March 21, 2019 History & Physical Bridge Note I have examined the patient, reviewed the History & Physical and in the interval since the performance of the History & Physical I have noted the following changes of clinical significance: no changes noted Patient has successfully completed his bowel prep. He denies any major changes since his evaluation on 03/20/2019. Keep NPO. Proceed with colonoscopy as planned today (03/21/2019). Supervising Physician Co-Signing Physician Notes Agree with GALINA Petersen as above Abd: Soft, NT, ND, +BS Proceed with colonoscopy today
--- NOTE | 2019-03-21 12:00 | Surgery Progress Note ---
Date of Service March 21, 2019 Assessment & Plan (1) Small bowel obstruction: clinically doing better suspect crohn's, colonoscopy today further recs per GI, will sign off for now Subjective for colonoscopy today, tolerating liquids and wants to try more Physical Exam Gastrointestinal (Abdomen): Inspection/Auscultation: abdomen not distended Results & Data Vital Signs (Past 12 Hours) Vital Signs Temp Pulse Resp BP Pulse Ox 03/21/19 07:10 36.6 C 64 16 142/86 H 97
[2019-03-21] MEDS ORDERED: LIDOCAINE HCL 2% 2 ML VIAL/AMP(20MG/ML) INFIL ONE ×2 (12:13→13:00)
[2019-03-21] MEDS ORDERED: PROPOFOL IV EMULSION 10 MG/ML 20 ML VIAL IV ONE ×2 (12:13→13:00)
--- NOTE | 2019-03-21 13:46 | Anesthesiology Progress Note ---
Date of Service March 21, 2019 Anesthesia Post Procedure Vital Signs Vital Signs: Temp Pulse Resp BP Pulse Ox 03/21/19 13:40 53 L 18 137/82 100 03/21/19 13:24 58 L 18 119/79 98 03/21/19 13:11 36.6 C 66 18 119/81 98 03/21/19 12:26 36.3 C L 58 L 18 150/93 H 98 03/21/19 07:10 36.6 C 64 16 142/86 H 97 03/20/19 23:05 36.5 C 58 L 16 141/82 H 100 03/20/19 14:59 36.7 C 67 19 134/81 98 Pain Intensity Abdomen: Pain Intensity: 0 Head: Pain Intensity: 0 Back: Pain Intensity: 0 Transfer of Care Handoff Completed per policy Notes Mental Status: alert / awake / arousable and participated in evaluation Patient Amnestic to Procedure: Yes Nausea / Vomiting: adequately controlled Pain: adequately controlled Airway Patency, RR, SpO2: stable & adequate BP & HR: stable & adequate Hydration State: stable & adequate Anesthetic Complications: no major complications apparent
--- NOTE | 2019-03-21 16:05 | Discharge Summary ---
Date of Service March 21, 2019 Admission HPI Per Admitting Provider 53-year-old male with his second episode of small bowel obstruction. His first episode occurred last summer. He has no definite evidence of inflammatory bowel disease and no previous abdominal surgeries. CT scan reveals evidence of small bowel obstruction in the region of the distal ileum. Colonoscopy done last fall however was normal. He did have some nausea and vomiting associated with the abdominal pain this morning but he refuses NG tube placement and currently is not vomiting. Abdomen is soft. He will be admitted for conservative treatment with consultations to general surgery and gastroenterology Principal Diagnosis Small Bowel Obstruction Discharge Exam Constitutional WD/WN, vitals as above Respiratory normal respiratory effort, lungs clear to auscultation Cardiovascular RRR, no murmur, no edema Gastrointestinal (Abdomen) Inspection/Auscultation: abdomen normal to inspection and normal bowel sounds; abdomen not distended Percussion/Palpation: abdomen nontender Musculoskeletal no cyanosis or clubbing, extremities motor strength 5/5 Skin no rashes, warm and dry Neurologic moves all extremities and awake Psychiatric A+Ox3, euthymic affect Discharge Data Allergies Allergy/AdvReac Type Severity Reaction Status Date / Time No Known Allergies Allergy Verified 03/17/19 10:53 Consultations 03/17/19 13:10 Consult General Surgery Stat ED Decision to Admit Stat 03/17/19 15:06 Consult Gastroenterology Routine Consult General Surgery Routine Procedures Performed Operation Date: 03/21/19 12:15 Actual Procedures p Colonoscopy - Jamie Grande Case, DO Ordered Studies 03/17/19 10:21 CT abd pelvis IV con only Stat Hospital Course (1) Small bowel obstruction: CT 03/17 showed: IMPRESSION: 1. High-grade partial or complete small bowel obstruction of the distal ileum at a focal transition point in the right lower quadrant. This may relate to an adhesion versus an inflammatory stricture given suggestion of downstream small bowel wall thickening. KUB 03/18 showed improving SBO Consulted general surgery and gastroenterology Surgery has signed off, no surgery necessary Colonoscopy 03/21 - erythematous mucosa at the ileocecal valve, non bleeding hemorrhoids but otherwise normal - no changes to current care. GI ok with discharge tonight Concern for IBD but patient improved without steroids Patient had two bowel movements since admission, eating solid foods and tolerating, no abdominal pain (2) Hyperlipidemia: resume statins (3) History of non-Hodgkin's lymphoma: Treated and resolved in 2005 (4) DVT prophylaxis: Patient has been ambulating frequently (5) Renal lesion: On CT: 2. Indeterminate left renal lesions unchanged from prior. Consider ultrasound for assessment for possible solid lesion. Follow up outpatient Total Time Total Time Spent Total Time Spent (In Minutes): greater than 30 minutes Discharge Plan Discharge Items Patient Disposition: Home - Self-Care Reason For Visit: SBO Discharge Diagnosis: Small Bowel Obstruction Discharge Goals: Decrease discomfort and Diagnostic testing Activity: Resume your previous activity Non-emergency contact: Primary Care Provider Call non-emergency contact if: you have any medication questions, your symptoms worsen, your pain is not controlled and you have a fever Follow-up/Referrals: Renny Bundy III, MD [Primary Care Provider] - (follow up appointment with your primary care physician the office will call you with an appointment date and time) Kamala Polanco PA-C [Physician Spiral Tube Winder Helper] - 04/14/19 10:10 am (follow up appointment with the stomach doctor) Addtl Provider Instructions: Please follow up with your primary care as well as the above appointment with your washer meat. Prescriptions: Continued multivitamin Tablet 1 tab PO QAM RF: 0 atorvastatin 20 mg Tablet 20 mg PO HS RF: 0 Probiotic 3 billion cell Capsule 1 cap PO QAM RF: 0 Stand-Alone Forms: Call Back Authorization, [facility], Later [facility] Discharge Orders: Discharge Order (Routine); Ordered 03/21/19 Ordered By: Lynne Yost Admission Data Admit Date/Time: 03/17/19 14:25 Attending Provider: Romie Mena Admit Provider: Luis Alegria Primary Care Provider: Renny Bundy III Other Providers: Adrien Johns ; Luis Alegria ; Jaime Ellison ; Shaka Paredes Service: Medical Other Interventions: Discharge Summary Assessment (RN) Last Done: 03/21/19 13:27
== END 2019-03-21 16:50 | disposition home or self-care (01) | DRG 389 ==
LOC: ED 09:52 → 3W 14:25 → SUATTDRO 14:25 → 3W 14:37

== ENCOUNTER 2019-07-07 08:27 | Observation (INO) ==
--- NOTE | 2019-07-07 09:12 | Emergency Department Note ---
History of Present Illness General Chief complaint: Chest Pain Stated complaint: CHEST TIGHTNESS Time Seen by Provider: 07/07/19 09:06 History of Present Illness Maximum Pain Intensity: 1 This is a 54-year-old male that presents to the emergency department via private vehicle accompanied by female with complaints of "chest tightness". The patient states that since last week he has been experiencing intermittent chest tightness. He states that the first episode was after exercising. Specifically this was about 15 minutes after exercising. He then had this happen again after exercising. And then happened again last night, in the early hours of this morning. It is substernal in nature and at times is towards the throat. No history of reflux. No personal history of NV or PE. He has a history of high cholesterol. Pain is a 1/10. He describes it as a pressure in the substernal region. No exacerbating or alleviating factors. Home Medications Home Medications Medication Instructions Recorded Confirmed Type Probiotic 1 cap PO QAM 08/03/18 07/07/19 History atorvastatin 20 mg PO HS 08/03/18 07/07/19 History multivitamin 1 tab PO QAM 08/03/18 07/07/19 History Allergies Allergy/AdvReac Type Severity Reaction Status Date / Time No Known Allergies Allergy Verified 07/07/19 09:05 Past Med/Surg History Medical History History of non-Hodgkin's lymphoma (Chronic) Hyperlipidemia (Chronic) Stenosis of ileocecal valve (Acute) Small bowel obstruction (Acute) Cancer LYMPHOMA (2005 DX) RADIATION Hyperlipidemia Surgical History History of biopsy NECK LYMPH NODES RT/LEFT (LYMPHOMA) History of colonoscopy History of esophagogastroduodenoscopy (EGD) History of tonsillectomy History of tooth extraction S/P LASIK surgery Family History Father Family history of diabetes mellitus Social History Preferred Language: Angolan Communication Ability: Effective 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 Beliefs That Will Affect Care: None Current Living Situation: Family Other Information That Helps Us Care for You: No Feels Safe at Home: Yes Safety Concerns: Feels Safe At This Time Smoking Status: Never smoker Second Hand Exposure: Yes (RARELY) ; Hx Alcohol Use: Yes Alcohol type: beer and hard liquor Hx Substance Use: No Review of Systems A total of 10 systems reviewed and were otherwise negative Physical Exam Vital Signs Vital Signs - 24 hr 07/07/19 08:36 07/07/19 08:38 07/07/19 08:44 Temperature 36.4 C L Temperature Source Oral Sepsis Recent Fever Within 48 Hours No Sepsis New/Unexplained Change in Mental Status No Sepsis Action Taken by Nursing No Action Required Pulse Rate 65 77 67 Pulse Rate from SpO2 Sensor 66 63 Pulse Rhythm Regular Pulse Strength Normal Respiratory Rate 16 20 15 Respiratory Effort / Characteristics Non-Labored Spontaneous Respiratory Depth Normal Respiratory Pattern Regular Blood Pressure 156/93 H 156/93 H Blood Pressure Mean 114 114 Blood Pressure Position Sitting Pulse Oximetry 99 100 Oxygen Delivery Method Room Air 07/07/19 08:50 07/07/19 09:00 07/07/19 09:03 Temperature Temperature Source Sepsis Recent Fever Within 48 Hours Sepsis New/Unexplained Change in Mental Status Sepsis Action Taken by Nursing Pulse Rate 49 L 52 L Pulse Rate from SpO2 Sensor 50 L 53 L Pulse Rhythm Pulse Strength Respiratory Rate 16 14 Respiratory Effort / Characteristics Respiratory Depth Respiratory Pattern Blood Pressure Blood Pressure Mean Blood Pressure Position Pulse Oximetry 100 100 97 Oxygen Delivery Method Room Air 07/07/19 09:10 07/07/19 09:20 07/07/19 09:25 Temperature Temperature Source Sepsis Recent Fever Within 48 Hours Sepsis New/Unexplained Change in Mental Status Sepsis Action Taken by Nursing Pulse Rate 54 L 52 L 71 Pulse Rate from SpO2 Sensor 55 L 53 L 72 Pulse Rhythm Pulse Strength Respiratory Rate 14 13 20 Respiratory Effort / Characteristics Respiratory Depth Respiratory Pattern Blood Pressure 144/100 H Blood Pressure Mean 114 Blood Pressure Position Pulse Oximetry 100 100 100 Oxygen Delivery Method 07/07/19 09:30 07/07/19 10:03 07/07/19 10:05 Temperature Temperature Source Sepsis Recent Fever Within 48 Hours Sepsis New/Unexplained Change in Mental Status Sepsis Action Taken by Nursing Pulse Rate 64 63 63 Pulse Rate from SpO2 Sensor 66 64 62 Pulse Rhythm Pulse Strength Respiratory Rate 18 18 12 Respiratory Effort / Characteristics Respiratory Depth Respiratory Pattern Blood Pressure 136/90 111/78 Blood Pressure Mean 105 89 Blood Pressure Position Pulse Oximetry 98 98 98 Oxygen Delivery Method 07/07/19 10:10 07/07/19 11:00 10/11/19 11:30 Temperature Temperature Source Sepsis Recent Fever Within 48 Hours Sepsis New/Unexplained Change in Mental Status Sepsis Action Taken by Nursing Pulse Rate 65 62 54 L Pulse Rate from SpO2 Sensor 64 60 55 L Pulse Rhythm Pulse Strength Respiratory Rate 19 15 17 Respiratory Effort / Characteristics Respiratory Depth Respiratory Pattern Blood Pressure 139/77 136/91 Blood Pressure Mean 97 106 Blood Pressure Position Pulse Oximetry 99 100 98 Oxygen Delivery Method Room Air Room Air VITAL SIGNS - Vital signs and nursing notes were reviewed. Stable and afebrile. GENERAL -54-year-old male appearing his stated age who is in no acute distress. Communicates well with provider and answers questions appropriately. SKIN - Without rashes. No meningeal or petechial rash. HEAD - NC/AT. EYES - PERRL with EOMI bilaterally. Sclera anicteric. EARS - No deformities of external structures noted on gross examination bilaterally. NOSE - Midline and without cyanosis. No epistaxis or purulent drainage noted. MOUTH/OROPHARYNX - Without perioral cyanosis. NECK - Neck with FROM. LUNGS - Chest wall symmetric without accessory muscle use, intercostals retractions, or central cyanosis. Normal vesicular breath sounds CTA B/L. No wheezes, rales, or rhonchi appreciated. CARDIAC - RRR with S1/S2. No murmur, rubs, or gallops appreciated. No reproducible tenderness to palpation overlying the anterior chest wall. ABDOMEN - Abdominal contour normal without pulsations or visible masses. BS normoactive all four quadrants. No tenderness, palpable masses, hepatosplenomegaly, or ascites noted. EXTREMITIES - No clubbing or peripheral cyanosis. No pretibial edema present.+5/5 strength noted in UE/LE bilaterally. NEUROLOGIC - Cranial nerves II through XII grossly intact. Sensory intact to light touch throughout. PSYCH - A&O, and cooperates fully with examiner. Pt is very pleasant and interacts well with examiner. Course Administered Medications Sodium Chloride (1/2 Nss) 1,000 mls @ 100 mls/hr IV .Q10H VICKY Stop: 08/06/19 12:11 Last Admin: 07/07/19 12:30 Dose: 100 mls/hr Documented by: [id number] Discontinued Medications Al Hydrox/Mg Hydrox/Simethicone () 1 dose PO ONE ONE Stop: 07/07/19 09:29 Last Admin: 07/07/19 09:33 Dose: 1 dose Documented by: [id number] Aspirin (Aspirin Chew) 324 mg PO NOW STA Stop: 07/07/19 09:20 Last Admin: 07/07/19 09:24 Dose: 324 mg Documented by: [id number] Medical Decision Making Laboratory Data Result diagrams: 07/07/19 08:49 07/07/19 08:49 Lab Results 07/07/19 07/07/19 07/07/19 Range/Units 08:49 08:49 08:49 WBC 6.68 (4.8-10.8) K/uL RBC 4.69 L (4.7-6.1) M/uL Hgb 15.2 (14.0-18.0) g/dL Hct 42.8 (42-52) % MCV 91.3 (80-100) fL MCH 32.4 (25-34) pg MCHC 35.5 (32-36) g/dL RDW Std Deviation 42.4 (36.4-46.3) fL RDW Coeff of Song 12.6 (11.5-14.5) % Plt Count 132 (130-400) K/uL MPV 11.4 H (7.4-10.4) fL Immature Gran % (Auto) 0.1 % Neut % (Auto) 53.6 % Lymph % (Auto) 38.9 % [place] % (Auto) 6.4 % Eos % (Auto) 0.7 % Baso % (Auto) 0.3 % Immature Gran # (Auto) 0.01 (0.00-0.02) K/uL Neut # (Auto) 3.57 (1.4-6.5) K/uL Lymph # (Auto) 2.60 (1.2-3.4) K/uL [place] # (Auto) 0.43 (0.11-0.59) K/uL Eos # (Auto) 0.05 (0-0.5) K/uL Baso # (Auto) 0.02 (0-0.2) K/uL PT Cancelled INR Cancelled APTT Cancelled PTT Ratio Cancelled Sodium 140 (136-145) mmol/L Potassium 3.9 (3.5-5.1) mmol/L Chloride 107 (98-107) mmol/L Carbon Dioxide 26 (21-32) mmol/L Anion Gap 7.0 (3-11) BUN 22 H (7-18) mg/dl Creatinine 1.41 H (0.6-1.4) mg/dl Est Cr Clr Drug Dosing 67.7 ml/min Est GFR ( Amer) 65.0 Est GFR (Non-Af Amer) 56.1 BUN/Creatinine Ratio 15.8 (10-20) Glucose 101 H (70-99) mg/dl Calcium 8.9 (8.5-10.1) mg/dl Total Bilirubin 1.3 H (0.2-1) mg/dl AST 18 (15-37) U/L ALT 22 (12-78) U/L Alkaline Phosphatase 106 (45-117) U/L Troponin I < 0.015 (0-0.045) ng/ml Total Protein 7.4 (6.4-8.2) gm/dl Albumin 4.1 (3.4-5.0) gm/dl Globulin 3.3 (2.5-4.0) gm/dl Albumin/Globulin Ratio 1.2 (0.9-2) 07/07/ Range/Units 10:12 WBC (4.8-10.8) K/uL RBC (4.7-6.1) M/uL Hgb (14.0-18.0) g/dL Hct (42-52) % MCV (80-100) fL MCH (25-34) pg MCHC (32-36) g/dL RDW Std Deviation (36.4-46.3) fL RDW Coeff of Song (11.5-14.5) % Plt Count (130-400) K/uL MPV (7.4-10.4) fL Immature Gran % (Auto) % Neut % (Auto) % Lymph % (Auto) % [place] % (Auto) % Eos % (Auto) % Baso % (Auto) % Immature Gran # (Auto) (0.00-0.02) K/uL Neut # (Auto) (1.4-6.5) K/uL Lymph # (Auto) (1.2-3.4) K/uL [place] # (Auto) (0.11-0.59) K/uL Eos # (Auto) (0-0.5) K/uL Baso # (Auto) (0-0.2) K/uL PT 10.8 INR 1.1 APTT 24.8 PTT Ratio 0.9 Sodium (136-145) mmol/L Potassium (3.5-5.1) mmol/L Chloride (98-107) mmol/L Carbon Dioxide (21-32) mmol/L Anion Gap (3-11) BUN (7-18) mg/dl Creatinine (0.6-1.4) mg/dl Est Cr Clr Drug Dosing ml/min Est GFR ( Amer) Est GFR (Non-Af Amer) BUN/Creatinine Ratio (10-20) Glucose (70-99) mg/dl Calcium (8.5-10.1) mg/dl Total Bilirubin (0.2-1) mg/dl AST (15-37) U/L ALT (12-78) U/L Alkaline Phosphatase (45-117) U/L Troponin I (0-0.045) ng/ml Total Protein (6.4-8.2) gm/dl Albumin (3.4-5.0) gm/dl Globulin (2.5-4.0) gm/dl Albumin/Globulin Ratio (0.9-2) Imaging Data Radiologist's Impression: SINGLE VIEW CHEST CLINICAL HISTORY: Atypical chest pain. FINDINGS: An AP, portable, upright chest radiograph is compared to study dated 01/09/2019. The cardiomediastinal silhouette is unremarkable. The lungs and pleural spaces are clear. No pneumothorax is seen. The bony thorax is grossly intact. IMPRESSION: No active disease in the chest. Electronically signed by: Julio C Jain M.D. 07/07/2019 9:26 AM MDM Narrative Patient was seen and evaluated as above in room a 11. Review was performed of nursing notes and vital signs. After obtaining a thorough history and physical examination the above work up was performed. He presents to us today with chest tightness. I am concerned because 2 episodes occurred shortly after exercise/activity. He has no known heart history. His risk factors are that of the history here today, his age, and hypercholesterolemia. His EKG was obtained and at this time reveals per my interpretation sinus bradycardia with sinus arrhythmia rate of 59 bpm. There is no ectopy or ischemic change. No evidence of ischemia. No concerning QT prolongation. No previous for comparison. CBC reveals no leukocytosis or concerning anemia. No concerning coagulopathy. There is evidence of JESSEE with creatinine of 1.41 and BUN at 22. T bili 1.3. Troponin negative. Although the patient's chest pain could be from several causes, I am concerned given his risk factors that this could be cardiac. I do believe that further evaluation and management in the inpatient setting is warranted. I offered the patient outpatient follow-up for this or inpatient management and recommended inpatient management given his risk factors and presentation here today. Patient was amenable to staying. I discussed this with hospitalist. Please refer to further documentation regarding his stay. He was given aspirin on arrival. In addition, he was given a GI cocktail with some relief but no resolution. I am not convinced this is gastritis/PUD but certainly those are in the differential. Case was discussed with the attending physician. In the evaluation and treatment of this patient, the following differential diagnoses were considered: NV, ASC, Dysrhythmia, Angina, Mediastinitis, GERD, Esophagitis, PE, Pneumonia, Bronchitis, Costochondritis, Rib Fracture, Zoster, a driss others. Impression & Plan Chest pain, JESSEE (acute kidney injury) Discharge Plan Visit Data *Final* Discharge Date/Time: 07/07/19 11:58 Chief Complaint: Chest Pain Stated Complaint: CHEST TIGHTNESS ED Provider: Juan Kaplan ED Midlevel Provider: Hero Caballero Discharge Problem: Chest pain, JESSEE (acute kidney injury) Patient Disposition: Admitted As Inpatient Condition: Good Discharge Instructions Interventions: ED Discharge Assessment Last Done: 07/07/19 11:58
[2019-07-07 09:16] LABS: Basophils # (auto) 0.02 K/uL (0-0.2); Basophils % (auto) 0.3 %; Eosinophils # (auto) 0.05 K/uL (0-0.5); Eosinophils % (auto) 0.7 %; Hematocrit (blood only) 42.8 % (42-52); Hemoglobin 15.2 g/dL (14.0-18.0); Immature Granulocytes # (auto) 0.01 K/uL (0.00-0.02); Immature Granulocytes % (auto) 0.1 %; Lymphocytes % (auto) 38.9 %; Mean Corpuscular Hemoglobin 32.4 pg (25-34); Mean Corpuscular Hgb Conc 35.5 g/dL (32-36); Mean Corpuscular Volume 91.3 fL (80-100); Mean Platelet Volume 11.4 fL (7.4-10.4); Monocytes # (auto) 0.43 K/uL (0.11-0.59); Monocytes % (auto) 6.4 %; Neutrophils # (auto) 3.57 K/uL (1.4-6.5); Neutrophils % (auto) 53.6 %; Platelet Count 132 K/uL (130-400); RDW Coefficient of Variation 12.6 % (11.5-14.5); RDW Standard Deviation 42.4 fL (36.4-46.3); Red Blood Count 4.69 M/uL (4.7-6.1); White Blood Count 6.68 K/uL (4.8-10.8)
[2019-07-07] MEDS ORDERED: ASPIRIN 81 MG CHEW PO STA (09:19)
[2019-07-07 09:25] LABS: Alanine Aminotransferase 22 U/L (12-78); Albumin Level 4.1 gm/dl (3.4-5.0); Aspartate Aminotransferase 18 U/L (15-37); BUN Creatinine Ratio 15.8 (10-20); Blood Urea Nitrogen 22 mg/dl (7-18); Calcium 8.9 mg/dl (8.5-10.1); Carbon Dioxide 26 mmol/L (21-32); Chloride 107 mmol/L (98-107); Creatinine Clr Calc Pharmacy 67.7 ml/min; Est GFR (Non-African American) 56.1; Glucose 101 mg/dl (70-99); Potassium 3.9 mmol/L (3.5-5.1); Sodium 140 mmol/L (136-145)
--- NOTE | 2019-07-07 09:27 | XRay Report ---
SINGLE VIEW CHEST CLINICAL HISTORY: Atypical chest pain. FINDINGS: An AP, portable, upright chest radiograph is compared to study dated 01/09/2019. The cardiom ediastinal silhouette is unremarkable. The lungs and pleural spaces are clear. No pneumothorax is see n. The bony thorax is grossly intact. IMPRESSION: No active disease in the chest. Electronically signed by: Julio C Jain M.D. 07/07/2019 9:26 AM
[2019-07-07] MEDS ORDERED: GI COCKTAIL ED USE PO ONE (09:28)
[2019-07-07 09:30] LABS: Albumin Globulin Ratio 1.2 (0.9-2); Alkaline Phosphatase 106 U/L (45-117); Bilirubin,Total 1.3 mg/dl (0.2-1); Globulin 3.3 gm/dl (2.5-4.0); Total Protein 7.4 gm/dl (6.4-8.2); Troponin I < 0.015 ng/ml (0-0.045)
[2019-07-07 10:36] LABS: INR 1.1 (0.9-1.1); Partial Thromboplastin Ratio 0.9; Partial Thromboplastin Time 24.8 Seconds (21.0-31.0); Prothrombin Time 10.8 Seconds (9.0-12.0)
--- NOTE | 2019-07-07 11:55 | History & Physical Report ---
Date of Service July 07, 2019 Assessment & Plan (1) Chest pain: ACS vs PUD/gastritis Improved with GI cocktail but did not resolve Trop neg x1, serials pending Stress ECHO pending if trops neg CXR neg for acute EKG with sinus george EGD 07/2017 was neg for acute--seen by Dr. Ellison if needed Lipid panel pending (2) JESESE (acute kidney injury): No prior hx of elevated cr IVF and recheck in AM CTAP done with SBO episode 02/2019 was noted for renal lesions not well visualized but no change from CTAP 03/[address] Petersen 06/2018 for same lesions. Dx as benign and not needing f/u unless hematuria or other urinary issues Will hold on renal US for now, t/c if cr does not improve (3) Renal lesion: As above (4) Hyperlipidemia: continue home meds (5) History of non-Hodgkin's lymphoma: Hx of tx in 2005, radiation only No recurrence Tx was to neck region only (6) DVT prophylaxis: Ambulation History of Present Illness Primary Care Provider: Renny Bundy MD 54 y/o M c/o chest pain. Pt states that he has been having intermittent episodes of chest tightness and pain for over a week. He states the first episode was 06/28. 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 He had no issues with the workout, but was showering about 20 minutes later and had sudden onset of substernal chest tightness and anxiety. He thought it was related to the hot shower and small space, so he got out of the shower and did some deep breathing. Sx resolved. He was fine until 07/04 when he was doing a workout that was yoga and weight lifting. He had chest tightness and anxious feeling again, but was able to complete the workout. He again utilized deep breathing and it resolved. On 07/05 he was in [place] for work and about 30 minutes after lunch he was a passenger in a car driving back to [place] when he had another similar episode that resolved with deep breathing. His watch recorded a HR of 119. He states that it was a few hours later for his HR to improve. He had no issues yesterday and in between these episodes he feels perfectly fine. He and his discussed last night prior to bed that he would call his PCP today for an appt given the repeat nature of these episodes. He woke around 1a due to chest tightness which caused anxiety. This pain was more intense than it had been prior and was not resolving, so he called PCP office and was directed to the ED. He states he did not eat late at night or just prior to bed. In the ED, pt was given aspirin and a GI cocktail. He states his chest tightness did improve, but did not fully resolve. With these episodes pt denies fever, SOB, abd pain, n/v/c/d, LE pain or swelling. Denies any urinary issues. 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 He stepped out and did some breathing and this resolved. No tightness with this. He has never had issues with the helicopter in the past. He had a second similar issue when getting into the small backseat of a co-worker's work but was able to deep breathe through this and it resolved. Pt does have hx of radiation tx for non-Hodgkin's lymphoma in 2005. Area was localized to L side of neck only. No chest exposure per pt. Allergies Allergy/AdvReac Type Severity Reaction Status Date / Time No Known Allergies Allergy Verified 07/07/19 09:05 Home Medications Home Medications Medication Instructions Recorded Confirmed Type Probiotic 1 cap PO QAM 08/03/18 07/07/19 History atorvastatin 20 mg PO HS 08/03/18 07/07/19 History multivitamin 1 tab PO QAM 08/03/18 07/07/19 History Past Med/Surg History Medical History History of non-Hodgkin's lymphoma (Chronic) Hyperlipidemia (Chronic) Stenosis of ileocecal valve (Acute) Small bowel obstruction (Acute) Cancer LYMPHOMA (2005 DX) RADIATION Hyperlipidemia Surgical History History of biopsy NECK LYMPH NODES RT/LEFT (LYMPHOMA) History of colonoscopy History of esophagogastroduodenoscopy (EGD) History of tonsillectomy History of tooth extraction S/P LASIK surgery Family History Father Family history of diabetes mellitus Social History (Reviewed 07/07/19 @ 12:03 by LEXA Rocha Preferred Language: Chadian Communication Ability: Effective Handkerchief Maker Required: No Beliefs That Will Affect Care: None Current Living Situation: Spouse and Family Feels Safe at Home: Yes Smoking Status: Never smoker Second Hand Exposure: Yes (RARELY) ; Hx Alcohol Use: No Hx Substance Use: No Review of Systems Review of Systems: Pertinent positives and negatives reviewed in HPI--all others negative Physical Exam Constitutional: WD/WN, vitals as above Eyes: normal visual paredes by confrontation and + anicteric sclerae Neck: normal visual inspection and trachea midline Respiratory: normal respiratory effort, lungs clear to auscultation Cardiovascular: Rate/Rhythm: regular rate and regular rhythm Gastrointestinal (Abdomen): Inspection/Auscultation: abdomen not distended Percussion/Palpation: abdomen soft; abdomen nontender Musculoskeletal: Head/Neck/Chest: normocephalic and head atraumatic negat alba for edema, peripheral pulses intact Skin: no rashes, warm and dry Neurologic: awake; not confused Speech / Cognition: normal speech Psychiatric: A+Ox3, euthymic affect Results & Data Vital Signs (Past 12 Hours) Vital Signs Temp Pulse Resp BP Pulse Ox 07/07/19 11:30 54 L 17 136/91 98 07/07/19 11:00 62 15 139/77 100 07/07/19 10:10 65 19 99 07/07/19 10:05 63 12 98 07/07/19 10:03 63 18 111/78 98 07/07/19 09:30 64 18 136/90 98 07/07/19 09:25 71 20 144/100 H 100 07/07/19 09:20 52 L 13 100 07/07/19 09:10 54 L 14 100 07/07/19 09:03 97 07/07/19 09:00 52 L 14 100 07/07/19 08:50 49 L 16 100 07/07/19 08:44 67 15 100 07/07/19 08:38 36.4 C L 77 20 156/93 H 99 07/07/19 08:36 65 16 156/93 H Diagnostic Findings CXR: neg for acute ECG Additional Comments: sinus george with sinus arrhythmia Code Status & VTE Plan Code Status Full code VTE Prophylaxis Plan VTE Prophylaxis will be ordered: Yes PG Care Time/CCT Total # of Minutes Spent Total Time Spent with Patient: Total time spent is greater than 50% in coordination of care (as documented) at patient's floor/unit and/or counseling patient:
[2019-07-07] MEDS ORDERED: ONDANSETRON INJ 2 MG/ML 2 ML VIAL IV PRN (12:12)
[2019-07-07] MEDS ORDERED: MAGNESIUM HYDROXIDE SUSP 30 ML UDC PO PRN (12:12)
[2019-07-07] MEDS ORDERED: NITROGLYCERIN SL 0.4 MG/TAB TAB SL PRN (12:12)
[2019-07-07] MEDS ORDERED: ACETAMINOPHEN 325 MG TAB PO PRN (12:12)
[2019-07-07] MEDS ORDERED: ALUMINUM/MAGNESIUM SUSP 72 ML, LIDOCAINE HCL VISCOUS 2% 24 ML, BARCODE IDENTIFIER 1 EA PO PRN (12:12)
[2019-07-07] MEDS: SODIUM CHLORIDE 0.45 % 1,000 ML IV SCH ×2 (12:30→22:10)
[2019-07-07] MEDS ORDERED: ATORVASTATIN 20 MG TAB PO SCH (21:00)
[2019-07-08 07:29] LABS: BUN Creatinine Ratio 15.7 (10-20); Calcium 8.6 mg/dl (8.5-10.1); Creatinine Clr Calc Pharmacy 78.2 ml/min; Est GFR (African American) 77.4; Est GFR (Non-African American) 66.8; Potassium 4.2 mmol/L (3.5-5.1)
[2019-07-08] MEDS: SODIUM CHLORIDE 0.45 % 1,000 ML IV SCH (07:52)
[2019-07-08] MEDS ORDERED: MULTIVITAMIN TAB PO SCH (09:00)
[2019-07-08] MEDS ORDERED: LACTOBACILLUS ACIDOPHILUS (FLORANEX) TAB PO SCH (09:00)
[2019-07-08] MEDS ORDERED: ASPIRIN 81 MG ECTAB PO SCH (09:15)
--- NOTE | 2019-07-08 12:08 | Cardiology Consultation ---
Date of Consultation July 08, 2019 Assessment & Plan (1) Chest pain: The patient's description of chest discomfort is atypical for classic angina pectoris. Fortunately, there are no acute EKG changes nor troponin elevations. We will proceed with a stress echocardiogram. (2) Hyperlipidemia: Continue atorvastatin. (3) History of non-Hodgkin's lymphoma: The patient had neck (not chest) irradiation performed back in 2005. History of Present Illness Attending Physician: Yojana Nowak MD History of Present Illness Mr. Gomez is a 54-year-old male admitted yesterday with a chest pain syndrome. This consult was ordered to assist his management. Patient claims he was in his usual state of health until June 28. Twenty minutes after a very intense workout, the patient developed a substernal chest tightness, anxiety and persistent fatigue which lasted the entire day. There are no other associated symptoms such as shortness of breath, nausea, vomiting, or diaphoresis. The patient was well until WednesdayJuly 04 when he again developed substernal chest tightness and anxiety during a stressful situation at work. Again, his symptoms lasted the entire day. The patient was normal on July 05, however, awoke early Wednesday morning with the same symptom complex of substernal chest tightness and anxiety. The patient presented to the emergency room for further care. The patient is very vigorous both at home, and work. He also exercises routinely. The patient has never known of a cardiac event. He has never experienced exertional angina pectoris or limiting dyspnea. He further denies syncope, presyncope, PND, orthopnea, palpitations, lower extremity edema, and claudication. Currently, patient is resting comfortably in bedside chair without complaints. Past medical and surgical history 1. Hypercholesterolemia 2. Non-Hodgkin's lymphoma-2005, neck radiation therapy 3. History of recurrent small-bowel obstructions-March 2018, February 2019 4. Tonsillectomy 5. Lasik Social history and lives with his Three adult children No tobacco Occasional alcohol Family history Father at 83 from a CVA Mother at 83 from a CVA One brother has atrial fibrillation Review of systems A 10 point review of systems was negative except for that described above. Allergies Allergy/AdvReac Type Severity Reaction Status Date / Time No Known Allergies Allergy Verified 07/07/19 09:05 Home Medications Home Medications Medication Instructions Recorded Confirmed Type Probiotic 1 cap PO QAM 08/03/18 07/07/19 History atorvastatin 20 mg PO HS 08/03/18 07/07/19 History multivitamin 1 tab PO QAM 08/03/18 07/07/19 History Patient History Medical History History of non-Hodgkin's lymphoma (Chronic) Hyperlipidemia (Chronic) Stenosis of ileocecal valve (Acute) Small bowel obstruction (Acute) Cancer LYMPHOMA (2006 DX) RADIATION Hyperlipidemia Surgical History History of biopsy NECK LYMPH NODES RT/LEFT (LYMPHOMA) History of colonoscopy History of esophagogastroduodenoscopy (EGD) History of tonsillectomy History of tooth extraction S/P LASIK surgery Family History Father Family history of diabetes mellitus Social History Preferred Language: Beninese Communication Ability: Effective Research Physicist Required: No Beliefs That Will Affect Care: None Current Living Situation: Family Other Information That Helps Us Care for You: No Feels Safe at Home: Yes Safety Concerns: Feels Safe At This Time Smoking Status: Never smoker Second Hand Exposure: Yes (RARELY) ; Hx Alcohol Use: Yes Alcohol type: beer and hard liquor Hx Substance Use: No Physical Exam Physical Exam: In general this is a well-developed well-nourished white male in no acute distress. HEENT exam is negative. Neck is supple with full carotid upstrokes. There are no carotid bruits. Jugular venous pressure is flat at 90. There is no thyromegaly. Cardiovascular exam reveals a regular rhythm with a normal S1 and S2. No S3, S4, or murmurs are noted. Lungs are clear without rales, rhonchi, or wheezes. Abdomen is soft and nontender without bruits. Extremities reveal intact radial artery and posterior tibial pulses bilaterally. There is no peripheral edema. Results & Data Vital Signs (Past 12 Hours) Vital Signs Temp Pulse Pulse Resp BP BP Pulse Ox 07/08/19 07:48 36.6 C 62 18 115/75 97 10/12/19 07:00 78 07/08/19 04:05 36.6 C 56 L 18 103/69 97 Laboratory Results CBC notes hemoglobin 15.2, hematocrit 42.8, white count 6.6, platelet count of 232226. Electrolytes notice sodium 141, potassium 4.2, chloride 111, bicarb 24, BUN 19, creatinine 1.22, glucose 92. Three troponin I levels are undetectable at less than 0.015. Diagnostic Findings EKG notes normal sinus rhythm without abnormalities. 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 Chest x-ray shows no acute disease. PG Care Time/CCT Total # of Minutes Spent Total Time Spent with Patient: Total time spent is greater than 50% in coordination of care (as documented) at patient's floor/unit and/or counseling patient:
[2019-07-08] MEDS ORDERED: PANTOprazole 40 MG TAB PO STA (13:28)
--- NOTE | 2019-07-08 13:43 | Discharge Summary ---
Date of Service July 08, 2019 Admission HPI Per Admitting Provider 54 y/o M c/o chest pain. Pt states that he has been having intermittent episodes of chest tightness and pain for over a week. He states the first episode was 06/28. 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 He had no issues with the workout, but was showering about 20 minutes later and had sudden onset of substernal chest tightness and anxiety. He thought it was related to the hot shower and small space, so he got out of the shower and did some deep breathing. Sx resolved. He was fine until 07/04 when he was doing a workout that was yoga and weight lifting. He had chest tightness and anxious feeling again, but was able to complete the workout. He again utilized deep breathing and it resolved. On 07/05 he was in [place] for work and about 30 minutes after lunch he was a passenger in a car driving back to [place] when he had another similar episode that resolved with deep breathing. His watch recorded a HR of 119. He states that it was a few hours later for his HR to improve. He had no issues yesterday and in between these episodes he feels perfectly fine. He and his discussed last night prior to bed that he would call his PCP today for an appt given the repeat nature of these episodes. He woke around 1a due to chest tightness which caused anxiety. This pain was more intense than it had been prior and was not resolving, so he called PCP office and was directed to the ED. He states he did not eat late at night or just prior to bed. In the ED, pt was given aspirin and a GI cocktail. He states his chest tightness did improve, but did not fully resolve. With these episodes pt denies fever, SOB, abd pain, n/v/c/d, LE pain or swelling. Denies any urinary issues. 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 He stepped out and did some breathing and this resolved. No tightness with this. He has never had issues with the helicopter in the past. He had a second similar issue when getting into the small backseat of a co-worker's work but was able to deep breathe through this and it resolved. Pt does have hx of radiation tx for non-Hodgkin's lymphoma in 2005. Area was localized to L side of neck only. No chest exposure per pt. Principal Diagnosis Noncardiac chest pain Discharge Exam Constitutional WD/WN, vitals as above Eyes PERRL, conjunctivae normal, anicteric sclerae ENMT external ear and nose normal, oropharynx normal Neck trachea midline, no thyromegaly Respiratory normal respiratory effort, lungs clear to auscultation Cardiovascular RRR, no murmur, no edema Chest (Breasts) Chest: normal inspection of chest (no TTP over sternum or ribs anteriorly) Gastrointestinal (Abdomen) normal bowel sounds, soft, nontender, no hepatosplenomegaly Musculoskeletal Extremities: extremities normal to inspection; no cyanosis and no clubbing Skin no rashes, warm and dry Neurologic moves all extremities and awake; no focal motor deficits Psychiatric A+Ox3, euthymic affect Lymphatic no preauricular lymphadenopathy, no cervical lymphadenopathy and no s ubclavicular lymphadenopathy Discharge Data Allergies Allergy/AdvReac Type Severity Reaction Status Date / Time No Known Allergies Allergy Verified 07/07/19 09:05 Consultations 07/07/19 10:20 ED Decision to Admit Stat 07/08/19 08:50 Consult Cardiology Routine Procedures Performed Stress ECHO-negative for ischemia Hospital Course (1) Chest pain: Presented with three episodes in the last week of substernal, squeezing chest pain that resolved on its own after 20 min, but left him with residual mild pressure all day long afterwards. Has purposefully lost 18 lbs by exercising and eating healthier. has a h/o recurrent SBO and ileocecal valve inflammation but has been ruled out for Crohn's. No EGD in 10 years. Improved with GI cocktail but did not resolve Trop serially neg x 3 Stress ECHO neg for ischemia and he achieved 16.5 METS CXR neg EKG with sinus george, iRBBB Appreciate Cardio consultation Stable for discharge to home with 2 week trial of Protonix and GERD precautions given. Since has previous GI history and possible Crohn's, recommend f/u with GI to evaluate fo rneed for EGD in light of recent recurrent chest pain. Could be esophageal spasm, reflux. 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 Petersen 06/2018 for same lesions. Dx as benign and not needing f/u unless hematuria or other urinary issues (3) Renal lesion: As above (4) Hyperlipidemia: continue home statin (5) History of non-Hodgkin's lymphoma: Pt reports no one was ever able to identify which particular type of NHL he had as it was very rare But was followed for many years with serial PET/CT scans and had no recurrence after XRT in 2006 (6) DVT prophylaxis: Ambulation Dispo-stable for dc to home Total Time Total Time Spent Total Time Spent (In Minutes): >30 min Total Time Includes: Examination of the Patient, Discharge Planning, Medication Reconciliation and Communication With Other Providers (Cardiology) Discharge Plan Discharge Items Patient Disposition: Home - Self-Care Reason For Visit: CHEST PAIN Discharge Diagnosis: Chest pain-noncardiac Condition on Discharge: Good Activity: Resume your previous activity Bathing: No limitations Driving/Machine Use: No limitations Non-emergency contact: Primary Care Provider and Disassembler Call non-emergency contact if: you have any medication questions, your symptoms worsen, your pain is not controlled, your pain is worsening, your pain is unusual for you and your pain is concerning for you Follow-up/Referrals: Jamie Ellison DO [Physician] - (Please call for a follow up appointment for possible EGD (upper GI tract scope)) Renny Bundy III, MD [Primary Care Provider] - (Please call for a follow up appointment within 1-2 weeks.) Diet: Regular Addtl Attending Provider Instructions: Please take a 2 week trial of Protonix 40mg once daily. This is an antacid that will help to prevent esophageal spasm by reducing the production of stomach acid. You should schedule an appointment with your GI specialist to see about getting an EGD to take a look at your esophagus and stomach in light of your recent, recurrent chest pains. You did not have a heart attack and your cardiac stress test was normal. Please follow up with your PCP within 1-2 weeks as well. Pending Studies at Discharge: No Stand-Alone Forms: Call Back Authorization, [employer] Medications and DC Order Prescriptions: New pantoprazole [Protonix] 40 mg tablet,delayed release (DR/EC) 40 mg PO QAM Qty: 14 RF: 0 Continued multivitamin Tablet 1 tab PO QAM RF: 0 atorvastatin 20 mg Tablet 20 mg PO HS RF: 0 Probiotic 3 billion cell Capsule 1 cap PO QAM RF: 0 Discharge Orders: Discharge Order (Routine); Ordered 07/08/19 Ordered By: Yojana Nowak Admission Data Admit Date/Time: 07/07/19 11:48 Attending Provider: Yojana Nowak Admit Provider: Nicole Manuel Primary Care Provider: Renny Bundy III Other Providers: Shaka Paredes ; Frantz Thakur
== END 2019-07-08 14:59 | disposition home or self-care (01) ==
LOC: 2N 08:27 → ED 08:27 → SUATTDRO 11:48 → 2N 11:58